=== PATIENT | male | born 1930 | race Caucasian/White ===

== ENCOUNTER → 2016-03-02 | Outpatient (CLI) | payer OTHER, MEDICARE | LOC: RAD 10:18 | PROVIDERS: ATTEND Urology | DX: N20.1 Calculus of ureter (principal) | CPT/HCPCS: 74000 ==

== ENCOUNTER → 2016-03-29 | Outpatient (CLI) | payer OTHER, MEDICARE | LOC: OD 10:16 | PROVIDERS: ATTEND Urology | DX: N20.1 Calculus of ureter (principal) | CPT/HCPCS: 74000 ==

== ENCOUNTER 2016-06-27 11:59 | Emergency (ER) | payer OTHER, MEDICARE ==
--- NOTE | 2016-06-27 13:13 | ER Document Report ---
ED Medical Screen (RME) - General Chief Complaint: Fall Stated Complaint: FALL BACK PAIN Mode of Arrival: Wheelchair Information source: Patient, Relative TRAVEL OUTSIDE OF THE [place] IN LAST 30 DAYS: No - HPI Onset: Other - 2 WKS AGO Onset/Duration: Sudden Quality of pain: Achy, Sharp Severity: Moderate Associated Symptoms: Weakness - LOWER EXTREMITIES Exacerbated by: Movement Relieved by: Remaining still Similar symptoms previously: Yes - PRIOR CHRONIC BACK PAIN Recently seen / treated by doctor: Yes - Gris[facility]Is[facility] IN [place] - Related Data Smoking: Non-smoker Frequency of alcohol use: None Drug Abuse: None Allergies/Adverse Reactions: pentazocine lactate [From [facility]] Allergy (Unknown, Verified 09/15/11 16:15) Past Medical History - General Information source: Patient, Relative - Past Medical History Cardiac Medical History: Reports: Hx Heart Attack, Hx Hypercholesterolemia, Hx Hypertension Pulmonary Medical History: Denies: Hx Tuberculosis Endocrine Medical History: Reports: None Renal/ Medical History: Reports: Hx Benign Prostatic Hyperplasia, Hx Kidney Stones. Denies: Hx Peritoneal Dialysis GI Medical History: Reports: Hx Gastroesophageal Reflux Disease Musculoskeltal Medical History: Reports Hx Arthritis Past Surgical History: Reports: Hx Cardiac Surgery, Hx Coronary Artery Bypass Graft, Hx Open Heart Surgery. Denies: Hx Pacemaker - Immunizations Hx Diphtheria, Pertussis, Tetanus Vaccination: Yes - 2009 Review of Systems - Review of Systems Constitutional: Weakness. denies: Chills, Fever EENT: No symptoms reported Cardiovascular: No symptoms reported Respiratory: No symptoms reported Gastrointestinal: No symptoms reported Musculoskeletal: See HPI, Back pain Neurological/Psychological: Tingling - HANDS & FEET Physical Exam - Vital signs Vitals: Temp Pulse Resp BP Pulse Ox 98.5 F 73 16 138/67 H 98 06/27/16 12:37 06/27/16 12:37 06/27/16 12:37 06/27/16 12:37 06/27/16 12:37 Interpretation: Normal - General General appearance: Appears well, Alert In distress: None - HEENT Head: Normocephalic - Back Back: Tender - OVER MIDLINE L2 TO L5 - Extremities General upper extremity: Normal inspection General lower extremity: Normal inspection Course - Vital Signs Vital signs: Temp Pulse Resp BP Pulse Ox 98.5 F 73 16 138/67 H 98 06/27/16 12:37 06/27/16 12:37 06/27/16 12:37 06/27/16 12:37 06/27/16 12:37
[2016-06-27 13:50] LABS: ABSOLUTE BASOPHILS # (AUTO) 0.1 10^3/uL (0.0-0.2); ABSOLUTE EOSINOPHILS # (AUTO) 0.2 10^3/uL (0.0-0.6); ABSOLUTE LYMPHOCYTES (AUTO) 2.4 10^3/uL (0.5-4.7); ABSOLUTE MONOCYTES (AUTO) 0.7 10^3/uL (0.1-1.4); ABSOLUTE NEUT (AUTO) 6.6 10^3/uL (1.7-8.2); BASOPHILS % (AUTO) 0.6 % (0-2); EOSINOPHILS % (AUTO) 2.3 % (0-6); HEMATOCRIT 41.9 % (37.9-51.0); HEMOGLOBIN 14.4 g/dL (13.5-17.0); HGB HCT DIFFERENCE 1.3; LYMPHOCYTES % (AUTO) 23.7 % (13-45); MEAN CORPUSCULAR HEMOGLOBIN 31.5 pg (27.0-33.4); MEAN CORPUSCULAR HGB CONC 34.4 g/dL (32.0-36.0); MEAN CORPUSCULAR VOLUME 92 fl (80-97); RED BLOOD COUNT 4.58 10^6/uL (4.35-5.55); RED CELL DISTRIBUTION WIDTH 13.3 % (11.5-14.0); SEGMENTED NEUTROPHILS % (AUTO) 66.4 % (42-78)
[2016-06-27 14:08] LABS: APPEARANCE,URINE CLEAR; BILIRUBIN,URINE NEGATIVE (NEGATIVE); GLUCOSE, URINE NEGATIVE (NEGATIVE); KETONES,URINE NEGATIVE (NEGATIVE); LEUKOCYTE ESTERASE,URINE NEGATIVE (NEGATIVE); NITRITE,URINE NEGATIVE (NEGATIVE); PROTEIN,URINE NEGATIVE (NEGATIVE); URINE SPECIFIC GRAVITY 1.003; UROBILINOGEN,URINE NEGATIVE mg/dL (<2.0)
[2016-06-27 14:09] LABS: ALANINE AMINOTRANSFERASE 35 U/L (21-72); ALBUMIN 4.5 g/dL (3.5-5.0); ALKALINE PHOSPHATASE 135 U/L (38-126); ANION GAP 13 (5-19); ASPARTATE AMINO TRANSFERASE 29 U/L (17-59); BILIRUBIN,DIRECT 0.3 mg/dL (0.0-0.4); BLOOD UREA NITROGEN 18 mg/dL (7-20); CARBON DIOXIDE 27 mmol/L (22-30); CHLORIDE 100 mmol/L (98-107); CREATININE RESULT 1.16 mg/dL (0.52-1.25); GLUCOSE 96 mg/dL (75-110); POTASSIUM 4.8 mmol/L (3.6-5.0); SODIUM 140.3 mmol/L (137-145); TOTAL PROTEIN 7.4 g/dL (6.3-8.2)
[2016-06-27] MEDS ORDERED: OXYCODONE-ACETAMINOPHEN 5-325 MG TABLET PO ONE (17:16)
[2016-06-27] MEDS ORDERED: ONDANSETRON 4 MG TAB.RAPDIS PO ONE (17:16)
[2016-06-27] MEDS ORDERED: ACETAMINOPHEN 325 MG TABLET PO ONE (17:46)
[2016-06-27 18:54] VITALS: BP 129/81
== END 2016-06-27 19:13 | disposition home or self-care (01) ==
LOC: ER 11:59
DX: S32.010A Wedge compression fracture of first lumbar vertebra, initial encounter for closed fracture (principal); W19.XXXA Unspecified fall, initial encounter; R53.1 Weakness; M54.9 Dorsalgia, unspecified; G89.29 Other chronic pain; Z79.891 Long term (current) use of opiate analgesic; I25.2 Old myocardial infarction; I10 Essential (primary) hypertension; Z88.5 Allergy status to narcotic agent; Z95.1 Presence of aortocoronary bypass graft
CPT/HCPCS: 36415; 72131; 80053; 81001; 85025; 99284

== ENCOUNTER 2017-05-11 10:42 | Emergency (ER) | payer OTHER, MEDICARE ==
[2017-05-11 11:57] LABS: ABSOLUTE BASOPHILS # (AUTO) 0.1 10^3/uL (0.0-0.2); ABSOLUTE EOSINOPHILS # (AUTO) 0.1 10^3/uL (0.0-0.6); ABSOLUTE LYMPHOCYTES (AUTO) 1.3 10^3/uL (0.5-4.7); ABSOLUTE MONOCYTES (AUTO) 0.9 10^3/uL (0.1-1.4); BASOPHILS % (AUTO) 0.6 % (0-2); EOSINOPHILS % (AUTO) 1.2 % (0-6); HEMATOCRIT 41.4 % (37.9-51.0); HEMOGLOBIN 13.7 g/dL (13.5-17.0); LYMPHOCYTES % (AUTO) 10.3 % (13-45); MEAN CORPUSCULAR HEMOGLOBIN 31.7 pg (27.0-33.4); MEAN CORPUSCULAR HGB CONC 33.2 g/dL (32.0-36.0); MEAN CORPUSCULAR VOLUME 96 fl (80-97); MONOCYTES % (AUTO) 7.3 % (3-13); PLATELET COUNT 205 10^3/uL (150-450); RED BLOOD COUNT 4.33 10^6/uL (4.35-5.55); RED CELL DISTRIBUTION WIDTH 13.8 % (11.5-14.0); SEGMENTED NEUTROPHILS % (AUTO) 80.6 % (42-78); TOTAL CELLS COUNTED % (AUTO) 100 %; WHITE BLOOD COUNT 12.4 10^3/uL (4.0-10.5)
--- NOTE | 2017-05-11 12:06 | RADIOLOGY REPORT (SQ) ---
EXAM DESCRIPTION: CHEST PA/LAT COMPLETED DATE/TIME: 05/11/2017 11:55 am REASON FOR STUDY: fall yesterday and syncope today COMPARISON: 09/14/2016 EXAM PARAMETERS: NUMBER OF VIEWS: two views TECHNIQUE: Digital Frontal and Lateral radiographic views of the chest acquired. RADIATION DOSE: NA LIMITATIONS: none FINDINGS: LUNGS AND PLEURA: No opacities, masses or pneumothorax. No pleural effusion. MEDIASTINUM AND HILAR STRUCTURES: No masses or contour abnormalities. HEART AND VASCULAR STRUCTURES: Heart normal size. No evidence for failure. BONES: No acute findings. HARDWARE: Sternotomy wires, graft markers. OTHER: No other significant finding. IMPRESSION: NO SIGNIFICANT RADIOGRAPHIC FINDING IN THE CHEST. TECHNICAL DOCUMENTATION: JOB ID: [id number] [employer]- All Rights Reserved Reading location - IP/workstation name: [email or web address]
--- NOTE | 2017-05-11 12:35 | RADIOLOGY REPORT (SQ) ---
EXAM DESCRIPTION: CT HEAD WITHOUT COMPLETED DATE/TIME: 05/11/2017 12:04 pm REASON FOR STUDY: fall yesterday and syncope today COMPARISON: None. TECHNIQUE: Axial images acquired through the brain without intravenous contrast. Images reviewed wi th bone, brain and subdural windows. Images stored on PACS. All CT scanners at this facility use dose modulation, iterative reconstruction, and/or weight based d osing when appropriate to reduce radiation dose to as low as reasonably achievable (ALARA). [facility]: Dose Right [facility]: CareDose [facility]: Dose Right [facility]: Teradose 4D [facility]: Smart [employer] RADIATION DOSE: CT Rad equipment meets quality standard of care and radiation dose reduction techniq ues were employed. CTDIvol: 28.0 mGy. DLP: 504 mGy-cm. mGy. LIMITATIONS: None. FINDINGS: VENTRICLES: Prominent ventricles secondary to involutional atrophy. CEREBRUM: Cortical atrophy. No masses. No hemorrhage. No midline shift. No evidence for acute inf arction. Normal boles/white matter differentiation. No areas of low density in the white matter. CEREBELLUM: No masses. No hemorrhage. No alteration of density. No evidence for acute infarction. EXTRAAXIAL SPACES: No fluid collections. No masses. ORBITS AND GLOBE: No intra- or extraconal masses. Normal contour of globe without masses. CALVARIUM: No fracture. PARANASAL SINUSES: No fluid or mucosal thickening. SOFT TISSUES: No mass or hematoma. OTHER: No other significant finding. IMPRESSION: Involutional changes of aging with no acute intracranial imaging findings. EVIDENCE OF ACUTE STROKE: NO. COMMENT: Quality ID # [id number]: Final reports with documentation of one or more dose reduction techniques (e.g., Automated exposure control, adjustment of the mA and/or kV according to patient size, use of iterative reconstruction technique) TECHNICAL DOCUMENTATION: JOB ID: [id number] [employer]- All Rights Reserved Reading location - IP/workstation name: [email or web address]
[2017-05-11 12:41] LABS: APPEARANCE,URINE SLIGHTLY-CLOUDY; BILIRUBIN,URINE NEGATIVE (NEGATIVE); COLOR,URINE YELLOW; GLUCOSE, URINE NEGATIVE (NEGATIVE); KETONES,URINE NEGATIVE (NEGATIVE); LEUKOCYTE ESTERASE,URINE NEGATIVE (NEGATIVE); NITRITE,URINE NEGATIVE (NEGATIVE); PROTEIN,URINE NEGATIVE (NEGATIVE); URINE SPECIFIC GRAVITY 1.009; UROBILINOGEN,URINE NEGATIVE mg/dL (<2.0)
--- NOTE | 2017-05-11 12:42 | RADIOLOGY REPORT (SQ) ---
EXAM DESCRIPTION: CT CERVICAL SPINE WITHOUT COMPLETED DATE/TIME: 05/11/2017 12:04 pm REASON FOR STUDY: fall yesterday and syncope today COMPARISON: None. TECHNIQUE: Axial images acquired through the cervical spine without intravenous contrast. Images re viewed with lung, soft tissue and bone windows. Reconstructed coronal and sagittal MPR images review ed. Images stored on PACS. All CT scanners at this facility use dose modulation, iterative reconstruction, and/or weight based d osing when appropriate to reduce radiation dose to as low as reasonably achievable (ALARA). [facility]: Dose Right [facility]: CareDose [facility]: Dose Right [facility]: Teradose 4D [facility]: Smart [employer] RADIATION DOSE: CT Rad equipment meets quality standard of care and radiation dose reduction techniq ues were employed. CTDIvol: 23.3 mGy. DLP: 362 mGy-cm. mGy. LIMITATIONS: None. FINDINGS: ALIGNMENT: Slightly increased cervical lordosis. Mild grade 1 anterolisthesis of C4 on 5 and C5 on 6. MINERALIZATION: Normal. VERTEBRAL BODIES: No fractures or dislocation. DISCS: Disc spaces are narrowed from C3-C5. Anterior and posterior osteophytes are present. FACETS, LATERAL MASSES, POSTERIOR ELEMENTS: Extensive hypertrophic facet changes are present mid to a lower cervical spine, slightly greater on the left than the right. There is no evidence of slipped or perched articular facet. HARDWARE: None in the spine. VISUALIZED RIBS: No fractures. LUNG APICES AND SOFT TISSUES: No significant or acute findings. OTHER: No other significant finding. IMPRESSION: Mild anterolistheses as described. Degenerative disc disease, spondylosis, and facet ar thropathy with no acute abnormality. TECHNICAL DOCUMENTATION: JOB ID: [id number] Quality ID # [id number]: Final reports with documentation of one or more dose reduction techniques (e.g., Au tomated exposure control, adjustment of the mA and/or kV according to patient size, use of iterative reconstruction technique) 2010 [employer]- All Rights Reserved Reading location - IP/workstation name: [email or web address]
--- NOTE | 2017-05-11 13:55 | EKG REPORT ---
SEVERITY:- ABNORMAL ECG - SINUS RHYTHM RIGHT BUNDLE BRANCH BLOCK : Confirmed by: Dave Rodriguez MD 11-May-2017 13:54:06
[2017-05-11 14:18] LABS: ALANINE AMINOTRANSFERASE 25 U/L (21-72); ALBUMIN 3.7 g/dL (3.5-5.0); ALKALINE PHOSPHATASE 92 U/L (38-126); ANION GAP 9 (5-19); ASPARTATE AMINO TRANSFERASE 20 U/L (17-59); BILIRUBIN,DIRECT 0.6 mg/dL (0.0-0.4); BILIRUBIN,TOTAL 1.1 mg/dL (0.2-1.3); BLOOD UREA NITROGEN 22 mg/dL (7-20); CARBON DIOXIDE 29 mmol/L (22-30); CHLORIDE 102 mmol/L (98-107); CREATINE KINASE 73 U/L (55-170); GLUCOSE 93 mg/dL (75-110); POTASSIUM 4.3 mmol/L (3.6-5.0); SODIUM 140.3 mmol/L (137-145); TOTAL PROTEIN 6.3 g/dL (6.3-8.2)
[2017-05-11 14:30] LABS: CREATINE KINASE MB 1.56 ng/mL (<4.55); TROPONIN I 0.014 ng/mL
--- NOTE | 2017-05-11 14:49 | ER Document Report ---
ED Syncope and Near Syncope - General Chief Complaint: Syncope Stated Complaint: POSSIBLE SYNCOPE Time Seen by Provider: 05/11/17 11:01 Notes: Patient is an 86-year-old male who presents emergency department after witnessed syncopal event at home. Patient's and daughter state that he was in his shower chair with his aide when he passed out. She states this was less than 10 minutes and he was then easily aroused. Denies any direct head trauma, denies any focal neurological complaint, weakness, dizziness, vision changes, loss of vision, chest pain, SOB, BOYKIN, cough, fever, abdominal pain, n/v /d, urianary pain/discomfort Past medical history significant for hypertension, recurrent bacterial infection , low back and neck pain under chronic pain management, distal neuropathy, glaucoma, previous PR with previous CABG TRAVEL OUTSIDE OF THE [place] IN LAST 30 DAYS: No - Related Data Allergies/Adverse Reactions: pentazocine lactate [From [facility]] Allergy (Unknown, Verified 09/15/11 16:15) Past Medical History - Social History Smoking Status: Former Smoker Chew tobacco use (# tins/day): No Frequency of alcohol use: None Drug Abuse: None Family History: None Patient has suicidal ideation: No Patient has homicidal ideation: No - Past Medical History Cardiac Medical History: Reports: Hx Heart Attack - x2, Hx Hypercholesterolemia , Hx Hypertension Pulmonary Medical History: Denies: Hx Tuberculosis Renal/ Medical History: Reports: Hx Benign Prostatic Hyperplasia, Hx Kidney Stones. Denies: Hx Peritoneal Dialysis GI Medical History: Reports: Hx Gastroesophageal Reflux Disease Musculoskeltal Medical History: Reports Hx Arthritis Past Surgical History: Reports: Hx Cardiac Catheterization - stent , Hx Cardiac Surgery, Hx Coronary Artery Bypass Graft, Hx Open Heart Surgery - CABG x2 2007 [place]. Denies: Hx Pacemaker - Immunizations Hx Diphtheria, Pertussis, Tetanus Vaccination: Yes - 2009 Hx Pneumococcal Vaccination: 03/06/06 Review of Systems - Review of Systems Notes: REVIEW OF SYSTEMS: CONSTITUTIONAL : Denies fever, chills, or sweats. Denies recent illness. EENT: Denies eye, ear, throat, or mouth pain or symptoms. Denies nasal or sinus congestion or discharge. Denies throat, tongue, or mouth swelling or difficulty swallowing. CARDIOVASCULAR: Denies chest pain. Denies palpitations or racing or irregular heart beat. Denies ankle edema. RESPIRATORY: Denies cough, cold, or chest congestion. Denies shortness of breath, difficulty breathing, or wheezing. GASTROINTESTINAL: Denies abdominal pain or distention. Denies nausea, vomiting , or diarrhea. Denies blood in vomitus, stools, or per rectum. Denies black, tarry stools. Denies constipation. GENITOURINARY: Denies difficulty urinating, painful urination, burning, frequency, blood in urine, or discharge. MUSCULOSKELETAL: Denies any muscle spasms, difficulty walking, extremity pain SKIN: Denies rash, lesions or sores. HEMATOLOGIC : Denies easy bruising or bleeding. LYMPHATIC: Denies swollen, enlarged glands. NEUROLOGICAL: Denies confusion or altered mental status. See HPI. Denies dizziness or lightheadedness. Denies headache. Denies weakness or paralysis or loss of use of either side. Denies problems with gait or speech. Denies sensory loss, numbness, or tingling. Denies seizures. PSYCHIATRIC: Denies anxiety or stress. Denies depression, suicidal ideation, or homicidal ideation. ALL OTHER SYSTEMS REVIEWED AND NEGATIVE. Dictation was performed using stylemarks voice recognition software Physical Exam - Vital signs Vitals: Temp Pulse BP Pulse Ox 97.5 F 58 L 116/52 L 97 05/11/17 10:46 05/11/17 10:46 05/11/17 10:46 05/11/17 10:46 - Notes Notes: PHYSICAL EXAM GENERAL: Alert, interacts well. HEAD: Normocephalic, atraumatic. EYES: Pupils equal, round, and reactive to light. Extraocular movements intact. ENT: Oral mucosa moist, tongue midline. NECK: Full range of motion. Supple. Trachea midline. LUNGS: Clear to auscultation bilaterally, no wheezes, rales, or rhonchi. No respiratory distress. HEART: Regular rate and rhythm. No murmurs, gallops, or rubs. ABDOMEN: Soft, nondistended, nontender. No guarding, rebound, or rigidity.. Bowel sounds present in all 4 quadrants. EXTREMITIES: Moves all 4 extremities spontaneously. No edema, radial and dorsalis pedis pulses 2/4 bilaterally. No cyanosis. NEUROLOGICAL: Alert and oriented x4. Normal speech. Face symmetric. Tongue protrudes midline. Extraocular motions intact. Pupils are 2 mm and equally reactive. Normal speech. 5 out of 5 strength in both the distal and proximal upper and lower extremities bilaterally. Sensation is grossly intact throughout. Finger to nose testing normal. Pronator drift normal. PSYCH: Normal affect, normal mood. SKIN: Warm, dry, normal turgor. No rashes or lesions noted. Course - Re-evaluation Re-evalutation: 05/11/17 14:48 Patient is an 86-year-old male who is hemodynamically stable, no acute distress and afebrile. Presentation of syncope of unclear etiology. Patient normotensive , alert, without focal neurologic deficits at time of arrival. Denies syncope was during exertion. No preceding symptoms of palpitations, chest pain, or shortness of breath. Patient asymptomatic at time of arrival. EKG is without evidence of HCOM, right heart strain, ST changes to suggest ischemia, prolong QTc, delta wave, epsilon wave, or Brugada syndrome. Patient denies any family history of sudden cardiac , personal history of of structural heart disease. Patient denies any symptoms to suggest an acute PE, PR, TAD, SAH, seizure, or acute GI bleed as the etiology of their syncope today. On exam, no murmurs to suggest critical aortic stenosis as possible etiology. Repeat neuro exams stable without any concerns for underlying TIA, CVA. CT of the head without any associated underlying concerns for stroke. Based on overall clinical history, exam findings, vitals, and patients appearance, I feel it is safe for patient to be discharged home at this time with close outpatient follow -up and strict return precautions. Patient is in agreement with this plan, has verbalized indications for return to ED, and questions have been answered. - Vital Signs Vital signs: Temp Pulse Resp BP Pulse Ox 97.4 F 58 L 19 121/64 97 05/11/17 11:35 05/11/17 10:46 05/11/17 15:01 05/11/17 15:01 05/11/17 15:01 - Laboratory Result Diagrams: 05/11/17 11:37 05/11/17 13:29 Laboratory results interpreted by me: 05/11/17 05/11/17 05/11/17 11:37 12:11 13:29 WBC 12.4 H RBC 4.33 L Seg Neutrophils % 80.6 H Lymphocytes % 10.3 L Absolute Neutrophils 10.0 H BUN 22 H Creatinine 1.26 H Est GFR (Non-Af Amer) 54 L Direct Bilirubin 0.6 H Urine Blood MODERATE H - Diagnostic Test Radiology reviewed: Image reviewed, Reports reviewed - EKG Interpretation by Me EKG shows normal: Sinus rhythm - with artifact Rate: Normal Rhythm: NSR When compared to previous EKG there are: No significant change Discharge - Discharge Clinical Impression: Syncope Qualifiers: Syncope type: unspecified Qualified Code(s): R55 - Syncope and collapse Condition: Good Disposition: HOME, SELF-CARE Additional Instructions: You were seen today after an episode of passing out. Your EKG here is normal. At this time, we do not feel that your episode of passing out was from any life- threatening cause. Please drink plenty of fluids over the next several days. Return to emergency department if you have any further episodes of syncope, headache, weakness, numbness, chest pain, or shortness of breath. Please follow up closely with your primary care physician. Referrals: [facility] [Provider Group] - Follow up as needed GEO MCKEON MD [Primary Care Provider] - Follow up in 3-5 days
[2017-05-11 15:18] VITALS: BP 121/64
== END 2017-05-11 15:19 | disposition home or self-care (01) ==
LOC: ER 10:42
DX: R55 Syncope and collapse (principal); I10 Essential (primary) hypertension; I25.2 Old myocardial infarction; G89.29 Other chronic pain; Z95.1 Presence of aortocoronary bypass graft; Z88.5 Allergy status to narcotic agent; Z95.5 Presence of coronary angioplasty implant and graft
CPT/HCPCS: 36415; 70450; 71046; 72125; 80053; 81001; 82550; 82553; 84484; 85025; 87086; 93005; 93010; 99285

== ENCOUNTER 2018-02-22 08:42 | Emergency (ER) | payer OTHER, MEDICARE ==
[2018-02-22] MEDS ORDERED: ACETAMINOPHEN 325 MG TABLET PO ONE (09:44)
--- NOTE | 2018-02-22 10:21 | EKG REPORT ---
SEVERITY:- ABNORMAL ECG - SINUS RHYTHM RIGHT BUNDLE BRANCH BLOCK : Confirmed by: Chandler Eastman 22-Feb-2018 10:20:40
--- NOTE | 2018-02-22 10:40 | RADIOLOGY REPORT (SQ) ---
EXAM DESCRIPTION: CT HEAD WITHOUT COMPLETED DATE/TIME: 02/22/2018 10:26 am REASON FOR STUDY: VALENTINE, fall COMPARISON: 05/11/2017 TECHNIQUE: Axial images acquired through the brain without intravenous contrast. Images reviewed wi th bone, brain and subdural windows. Additional sagittal and coronal reconstructions were generated. Images stored on PACS. All CT scanners at this facility use dose modulation, iterative reconstruction, and/or weight based d osing when appropriate to reduce radiation dose to as low as reasonably achievable (ALARA). [facility]: Dose Right [facility]: CareDose [facility]: Dose Right [facility]: Teradose 4D [facility]: [email or web address] RADIATION DOSE: CT Rad equipment meets quality standard of care and radiation dose reduction techniq ues were employed. CTDIvol: 53.2 mGy. DLP: 964 mGy-cm.mGy. LIMITATIONS: None. FINDINGS: VENTRICLES: Prominent. CEREBRUM: No masses. No hemorrhage. No midline shift. Areas of low density in the white matter mos t likely due to chronic micro-vascular ischemic change. No evidence for acute infarction. CEREBELLUM: No masses. No hemorrhage. No alteration of density. No evidence for acute infarction. EXTRAAXIAL SPACES: Age-related involutional change. No fluid collections. No masses. ORBITS AND GLOBE: No intra- or extraconal masses. Normal contour of globe without masses. CALVARIUM: No fracture. PARANASAL SINUSES: No fluid or mucosal thickening. SOFT TISSUES: No mass or hematoma. OTHER: No other significant finding. IMPRESSION: CHRONIC CHANGES OF ATROPHY AND MICROVASCULAR ISCHEMIA. NO ACUTE PROCESS. EVIDENCE OF ACUTE STROKE: NO. TECHNICAL DOCUMENTATION: JOB ID: [id number] Quality ID # [id number]: Final reports with documentation of one or more dose reduction techniques (e.g., Au tomated exposure control, adjustment of the mA and/or kV according to patient size, use of iterative reconstruction technique) 2010 [employer]- All Rights Reserved Reading location - IP/workstation name: [email or web address]
--- NOTE | 2018-02-22 10:41 | RADIOLOGY REPORT (SQ) ---
EXAM DESCRIPTION: CT CERVICAL SPINE WITHOUT COMPLETED DATE/TIME: 02/22/2018 10:26 am REASON FOR STUDY: falls, weak upper extremities COMPARISON: 05/11/2017. TECHNIQUE: Axial images acquired through the cervical spine without intravenous contrast. Images re viewed with lung, soft tissue and bone windows. Reconstructed coronal and sagittal MPR images review ed. Images stored on PACS. All CT scanners at this facility use dose modulation, iterative reconstruction, and/or weight based d osing when appropriate to reduce radiation dose to as low as reasonably achievable (ALARA). [facility]: Dose Right [facility]: CareDose [facility]: Dose Right [facility]: Teradose 4D [facility]: [employer] RADIATION DOSE: CT Rad equipment meets quality standard of care and radiation dose reduction techniq ues were employed. CTDIvol: 23.7 mGy. DLP: 545 mGy-cm. mGy. LIMITATIONS: None. FINDINGS: ALIGNMENT: Stable. MINERALIZATION: Normal. VERTEBRAL BODIES: No fractures or dislocation. DISCS: Multilevel disc space narrowing with osteophytes. FACETS, LATERAL MASSES, POSTERIOR ELEMENTS: Facet arthropathy. No fractures. No dislocation. No ac [place] findings. HARDWARE: None in the spine. VISUALIZED RIBS: No fractures. LUNG APICES AND SOFT TISSUES: No significant or acute findings. OTHER: No other significant finding. IMPRESSION: CHRONIC DEGENERATIVE CHANGES. NO ACUTE FINDINGS. TECHNICAL DOCUMENTATION: JOB ID: [id number] Quality ID # [id number]: Final reports with documentation of one or more dose reduction techniques (e.g., Au tomated exposure control, adjustment of the mA and/or kV according to patient size, use of iterative reconstruction technique) 2010 [employer]- All Rights Reserved Reading location - IP/workstation name: [email or web address]
--- NOTE | 2018-02-22 10:42 | ER Document Report ---
ED Fall - General Chief Complaint: Fall Stated Complaint: FALL WITHOUT INJURY Time Seen by Provider: 02/22/18 09:11 Mode of Arrival: Medic Information source: Patient, Relative Notes: Patient presents with his at bedside after patient slipped out of a chair after attempting to stand. states patient typically walks with use of a walker but has not been able to walk for the past week. Patient complains of headache pain for the past month. states that patient's had several falls over the past week and they have her had to rely on family member and neighbors to get him up and into a wheelchair. Patient has not been able to get out of a wheelchair independently. Patient without any nausea vomiting diarrhea, chest pain, abdominal pain or cough. Patient does complain of back pain but does report he has a history of chronic back pain. Patient denies any injury from e fall today. Patient states that for the past week he also has not been able to fully extend his fingers and that his hands have been in a flexed position bilaterally. Patient is able to move his upper extremities otherwise. TRAVEL OUTSIDE OF THE [place] IN LAST 30 DAYS: No - HPI Occurred: Last week Where: Home Context: Fell from sitting Associated symptoms: Difficulty walking Location of injury/pain: Back, Head Quality of pain: Achy Pain Level: 3 - Related data Allergies/Adverse Reactions: pentazocine lactate [From [employer]] Allergy (Unknown, Verified 09/15/11 16:15) Past Medical History - General Information source: Patient, Relative - Social History Smoking Status: Former Smoker Chew tobacco use (# tins/day): No Frequency of alcohol use: None Drug Abuse: None Lives with: Spouse/Significant other Family History: None Patient has suicidal ideation: No Patient has homicidal ideation: No - Past Medical History Cardiac Medical History: Reports: Hx Heart Attack - x2, Hx Hypercholesterolemia, Hx Hypertension Pulmonary Medical History: Denies: Hx Tuberculosis Renal/ Medical History: Reports: Hx Benign Prostatic Hyperplasia, Hx Kidney Stones. Denies: Hx Peritoneal Dialysis GI Medical History: Reports: Hx Gastroesophageal Reflux Disease Musculoskeletal Medical History: Reports Hx Arthritis Past Surgical History: Reports: Hx Cardiac Catheterization - stent , Hx Cardiac Surgery, Hx Coronary Artery Bypass Graft, Hx Open Heart Surgery - CABG x2 2007 vidant. Denies: Hx Pacemaker - Immunizations Hx Diphtheria, Pertussis, Tetanus Vaccination: Yes - 2009 Hx Pneumococcal Vaccination: 03/06/06 Review of Systems - Review of Systems Constitutional: No symptoms reported. denies: Fever, Recent illness EENT: No symptoms reported Cardiovascular: No symptoms reported. denies: Chest pain, Syncope, Dizziness, Lightheaded Respiratory: No symptoms reported. denies: Cough, Short of breath Gastrointestinal: No symptoms reported. denies: Abdominal pain, Vomiting Genitourinary: No symptoms reported Male Genitourinary: No symptoms reported Musculoskeletal: Back pain Skin: No symptoms reported Hematologic/Lymphatic: No symptoms reported Neurological/Psychological: Weakness - To bilateral lower extremities, Numbness - To lower extremity, Other - inability to extend fingers Physical Exam - Vital signs Vitals: Temp Resp Pulse Ox 98.6 F 15 94 02/22/18 09:00 02/22/18 09:00 02/22/18 09:00 - General General appearance: Appears well, Alert In distress: None - HEENT Head: Normocephalic, Atraumatic. No: Abrasions, Conte's sign, Racoon's eyes, Tenderness Eyes: Other - left eye conjunctival erythema Extraocular movements intact: Yes Nasal: Normal Mucous membranes: Normal Pharynx: Normal Neck: Normal, Supple. No: Lymphadenopathy Notes: No cervical midline tenderness step-off or deformity - Respiratory Respiratory status: No respiratory distress Chest status: Nontender Breath sounds: Normal. No: Rales, Rhonchi, Stridor, Wheezing Chest palpation: Normal - Cardiovascular Rhythm: Regular Heart sounds: S1 appreciated, S2 appreciated - Abdominal Inspection: Normal Distension: Distended Bowel sounds: Normal Tenderness: Nontender Organomegaly: No organomegaly - Back Back: Tender - Generalized lumbar paraspinal tenderness. No: CVA tenderness - Extremities General upper extremity: Other - Fingers of bilateral hands flexed, patient unable to fully extend fingers General lower extremity: Nontender, Edema - 2-3+ edema to bilateral lower extremities, left worse than right, Normal color, Normal temperature. No: Normal strength - Weakness to bilateral lower extremity, patient unable to lift left leg against gravity, patient able to lift right leg off of stretcher, Normal weight bearing Shoulder: Normal, Nontender Arm: Normal, Nontender Elbow: Normal, Nontender Forearm: Normal, Nontender Wrist: Normal, Nontender Hand: Other - Fingers of bilateral hands flexed Hip: Normal, Nontender Thigh: Normal, Nontender Knee: Normal, Nontender Ankle: Edema Foot: Edema - Neurological Neuro grossly intact: Yes [place] Coma Scale Eye Opening: Spontaneous [place] Coma Scale Verbal: Oriented [place] Coma Scale Motor: Obeys Commands [place] Coma Scale Total: 15 Speech: No: Normal, Dysarthria Motor strength normal: No: LUE, RUE, LLE, RLE - Psychological Associated symptoms: Normal affect, Normal mood - Skin Skin Temperature: Warm Skin Moisture: Dry Skin Color: Normal Course - Re-evaluation Re-evalutation: 02/22/18 13:[address] Ramos regarding pt presentation and diagnostic evaluation, advises admission for likely stroke with new onset LLE 02/22/18 13:[address] Lewis who states that he will come down and speak with ramya ent. 02/22/18 15:05 Dr. Lewis came down and spoke with patient and family. Patient and family are now not wanting patient to be admitted stating that they will attempt to arrange getting patient to rehab on an outpatient basis. Dr. Lewis states that he offered admission and family is declining at this point. States that if patient or family change their mind that he will be happy to admit. Tone with discharge planning was consulted and has been attempting to speak with his home health care as far as helping to arrange for any additional assistance with getting him transition to rehab. 02/22/18 15:53 Tone Aviles with discharge planning states that she spoke with [facility] who will be at patient's home tomorrow. Family does request assistance getting patient home and then they can manage until being evaluated tomorrow to help get him evaluated for transition to rehab. 02/22/18 18:51 - Vital Signs Vital signs: Temp Pulse Resp BP Pulse Ox 97.1 F 56 L 16 140/62 H 95 02/22/18 17:06 02/22/18 17:06 02/22/18 17:06 02/22/18 17:06 02/22/18 17:06 - Laboratory Result Diagrams: 02/22/18 11:05 02/22/18 11:05 Laboratory results interpreted by me: 02/22/18 02/22/18 11:05 11:05 RBC 4.13 L Carbon Dioxide 33 H BUN 23 H Creatinine 1.29 H Est GFR (Non-Af Amer) 53 L Total Protein 5.9 L Labs- Entire Visit 02/22/18 02/22/18 02/22/18 10:52 11:05 11:05 WBC 7.8 RBC 4.13 L Hgb 13.5 Hct 39.4 MCV 95 MCH 32.7 MCHC 34.3 RDW 13.7 Plt Count 174 Seg Neutrophils % 73.4 Lymphocytes % 14.2 Monocytes % 8.7 Eosinophils % 3.4 Basophils % 0.3 Absolute Neutrophils 5.7 Absolute Lymphocytes 1.1 Absolute Monocytes 0.7 Absolute Eosinophils 0.3 Absolute Basophils 0.0 PT 14.0 INR 1.03 APTT 34.1 Sodium Potassium Chloride Carbon Dioxide Anion Gap BUN Creatinine Est GFR ( Amer) Est GFR (Non-Af Amer) Glucose Calcium Total Bilirubin Direct Bilirubin Neonat Total Bilirubin Neonat Direct Bilirubin Neonat Indirect Bili AST ALT Alkaline Phosphatase Creatine Kinase CK-MB (CK-2) Troponin I Total Protein Albumin Urine Color YELLOW Urine Appearance CLEAR Urine pH 7.0 Ur Specific [place] 1.010 Urine Protein NEGATIVE Urine Glucose (UA) NEGATIVE Urine Ketones NEGATIVE Urine Blood NEGATIVE Urine Nitrite NEGATIVE Urine Bilirubin NEGATIVE Urine Urobilinogen NEGATIVE Ur Leukocyte Esterase NEGATIVE Urine WBC (Auto) 1 U Hyaline Cast (Auto) 4 Squamous Epi Cells Auto <1 Amorphous Sediment Auto TRACE Urine Mucus (Auto) RARE Urine Ascorbic Acid NEGATIVE 02/22/18 02/22/18 11:05 11:05 WBC RBC Hgb Hct MCV MCH MCHC RDW Plt Count Seg Neutrophils % Lymphocytes % Monocytes % Eosinophils % Basophils % Absolute Neutrophils Absolute Lymphocytes Absolute Monocytes Absolute Eosinophils Absolute Basophils PT INR APTT Sodium 141.5 Potassium 4.2 Chloride 100 Carbon Dioxide 33 H Anion Gap 9 BUN 23 H Creatinine 1.29 H Est GFR ( Amer) > 60 Est GFR (Non-Af Amer) 53 L Glucose 95 Calcium 9.9 Total Bilirubin 0.9 Direct Bilirubin 0.4 Neonat Total Bilirubin Not Reportable Neonat Direct Bilirubin Not Reportable Neonat Indirect Bili Not Reportable AST 24 ALT 23 Alkaline Phosphatase 91 Creatine Kinase 80 CK-MB (CK-2) 1.95 Troponin I 0.023 Total Protein 5.9 L Albumin 3.5 Urine Color Urine Appearance Urine pH Ur Specific [place] Urine Protein Urine Glucose (UA) Urine Ketones Urine Blood Urine Nitrite Urine Bilirubin Urine Urobilinogen Ur Leukocyte Esterase Urine WBC (Auto) U Hyaline Cast (Auto) Squamous Epi Cells Auto Amorphous Sediment Auto Urine Mucus (Auto) Urine Ascorbic Acid 02/22/18 15:23 Labs- Entire Visit 02/22/18 02/22/18 02/22/18 10:52 11:05 11:05 WBC 7.8 RBC 4.13 L Hgb 13.5 Hct 39.4 MCV 95 MCH 32.7 MCHC 34.3 RDW 13.7 Plt Count 174 Seg Neutrophils % 73.4 Lymphocytes % 14.2 Monocytes % 8.7 Eosinophils % 3.4 Basophils % 0.3 Absolute Neutrophils 5.7 Absolute Lymphocytes 1.1 Absolute Monocytes 0.7 Absolute Eosinophils 0.3 Absolute Basophils 0.0 PT 14.0 INR 1.03 APTT 34.1 Sodium Potassium Chloride Carbon Dioxide Anion Gap BUN Creatinine Est GFR ( Amer) Est GFR (Non-Af Amer) Glucose Calcium Total Bilirubin Direct Bilirubin Neonat Total Bilirubin Neonat Direct Bilirubin Neonat Indirect Bili AST ALT Alkaline Phosphatase Creatine Kinase CK-MB (CK-2) Troponin I Total Protein Albumin Urine Color YELLOW Urine Appearance CLEAR Urine pH 7.0 Ur Specific [place] 1.010 Urine Protein NEGATIVE Urine Glucose (UA) NEGATIVE Urine Ketones NEGATIVE Urine Blood NEGATIVE Urine Nitrite NEGATIVE Urine Bilirubin NEGATIVE Urine Urobilinogen NEGATIVE Ur Leukocyte Esterase NEGATIVE Urine WBC (Auto) 1 U Hyaline Cast (Auto) 4 Squamous Epi Cells Auto <1 Amorphous Sediment Auto TRACE Urine Mucus (Auto) RARE Urine Ascorbic Acid NEGATIVE 02/22/18 02/22/18 11:05 11:05 WBC RBC Hgb Hct MCV MCH MCHC RDW Plt Count Seg Neutrophils % Lymphocytes % Monocytes % Eosinophils % Basophils % Absolute Neutrophils Absolute Lymphocytes Absolute Monocytes Absolute Eosinophils Absolute Basophils PT INR APTT Sodium 141.5 Potassium 4.2 Chloride 100 Carbon Dioxide 33 H Anion Gap 9 BUN 23 H Creatinine 1.29 H Est GFR ( Amer) > 60 Est GFR (Non-Af Amer) 53 L Glucose 95 Calcium 9.9 Total Bilirubin 0.9 Direct Bilirubin 0.4 Neonat Total Bilirubin Not Reportable Neonat Direct Bilirubin Not Reportable Neonat Indirect Bili Not Reportable AST 24 ALT 23 Alkaline Phosphatase 91 Creatine Kinase 80 CK-MB (CK-2) 1.95 Troponin I 0.023 Total Protein 5.9 L Albumin 3.5 Urine Color Urine Appearance Urine pH Ur Specific [place] Urine Protein Urine Glucose (UA) Urine Ketones Urine Blood Urine Nitrite Urine Bilirubin Urine Urobilinogen Ur Leukocyte Esterase Urine WBC (Auto) U Hyaline Cast (Auto) Squamous Epi Cells Auto Amorphous Sediment Auto Urine Mucus (Auto) Urine Ascorbic Acid - Diagnostic Test Radiology reviewed: Reports reviewed Discharge - Discharge Clinical Impression: Left leg weakness, Unable to ambulate Fall Qualifiers: Encounter type: initial encounter Qualified Code(s): W19.XXXA - Unspecified fall, initial encounter Condition: Stable Disposition: HOME, SELF-CARE Instructions: Weakness ([facility]) Additional Instructions: Return immediately for any new or worsening symptoms Followup with your primary care provider, call tomorrow to make a followup appointment [facility] will be by to your home for evaluation tomorrow. Give your primary care provider a call for follow-up. Referrals: [facility] [Provider Group] - Follow up tomorrow
--- NOTE | 2018-02-22 10:51 | RADIOLOGY REPORT (SQ) ---
EXAM DESCRIPTION: CHEST SINGLE VIEW COMPLETED DATE/TIME: 02/22/2018 10:43 am REASON FOR STUDY: VALENTINE, fall COMPARISON: 09/15/2011 EXAM PARAMETERS: NUMBER OF VIEWS: One view. TECHNIQUE: Single frontal radiographic view of the chest acquired. RADIATION DOSE: NA LIMITATIONS: None. FINDINGS: LUNGS AND PLEURA: No opacities, masses or pneumothorax. No pleural effusion. MEDIASTINUM AND HILAR STRUCTURES: Stable. HEART AND VASCULAR STRUCTURES: Stable cardiomegaly. Normal vasculature. BONES: No acute findings. HARDWARE: CABG. OTHER: No other significant finding. IMPRESSION: NO ACUTE RADIOGRAPHIC FINDING IN THE CHEST. TECHNICAL DOCUMENTATION: JOB ID: [id number] [employer]- All Rights Reserved Reading location - IP/workstation name: [email or web address]
--- NOTE | 2018-02-22 10:52 | RADIOLOGY REPORT (SQ) ---
EXAM DESCRIPTION: T SPINE AP/LAT COMPLETED DATE/TIME: 02/22/2018 10:43 am REASON FOR STUDY: falls, back pain COMPARISON: None. NUMBER OF VIEWS: Two views. TECHNIQUE: AP and lateral radiographic images acquired of the thoracic spine. LIMITATIONS: None. FINDINGS: MINERALIZATION: Osteopenia. ALIGNMENT: Convex right scoliosis. VERTEBRAE: No fracture or bone lesion. Maintained height, normal segmentation. DISCS: Multilevel disc space narrowing with osteophytes. HARDWARE: None in the spine. MEDIASTINUM AND SOFT TISSUES: See separate report. VISUALIZED LUNG STANLEY: See separate report. OTHER: No other significant finding. IMPRESSION: SPONDYLOSIS WITHOUT BONE LESION OR FRACTURE. TECHNICAL DOCUMENTATION: JOB ID: [id number] [employer]- All Rights Reserved Reading location - IP/workstation name: [email or web address]
--- NOTE | 2018-02-22 10:57 | RADIOLOGY REPORT (SQ) ---
EXAM DESCRIPTION: L SPINE WHOLE COMPLETED DATE/TIME: 02/22/2018 10:44 am REASON FOR STUDY: falls, back pain COMPARISON: None recent. Correlation: CT lumbar spine 06/27/2016. NUMBER OF VIEWS: Five views including obliques. TECHNIQUE: AP, lateral, oblique, and sacral radiographic images acquired of the lumbar spine. LIMITATIONS: None. FINDINGS: MINERALIZATION: Osteopenia. SEGMENTATION: Normal. No transitional anatomy. ALIGNMENT: Grade 1 spondylolisthesis L4-5. VERTEBRAE: Compression fractures T12 and L1 with increased height loss at L1 compared to the prior. No obvious retropulsion. DISCS: Multilevel disc space narrowing with osteophytes. POSTERIOR ELEMENTS: Pedicles and facets are intact. No pars defect or posterior arch defects. Facet arthropathy is present. HARDWARE: None in the spine. PARASPINAL SOFT TISSUES: Normal. PELVIS: Intact as visualized. No fractures or worrisome bone lesions. SI joints intact. OTHER: No other significant finding. IMPRESSION: Compression fractures T12 and L1, present in June 2016. Progression of compression defor mity of L1. TECHNICAL DOCUMENTATION: JOB ID: [id number] [employer]- All Rights Reserved Reading location - IP/workstation name: [email or web address]
[2018-02-22 11:17] LABS: AMORPHOUS SEDIMENT,URINE TRACE /HPF; APPEARANCE,URINE CLEAR; BILIRUBIN,URINE NEGATIVE (NEGATIVE); COLOR,URINE YELLOW; GLUCOSE, URINE NEGATIVE (NEGATIVE); KETONES,URINE NEGATIVE (NEGATIVE); LEUKOCYTE ESTERASE,URINE NEGATIVE (NEGATIVE); NITRITE,URINE NEGATIVE (NEGATIVE); PROTEIN,URINE NEGATIVE (NEGATIVE); UROBILINOGEN,URINE NEGATIVE mg/dL (<2.0)
[2018-02-22 11:31] LABS: ABSOLUTE EOSINOPHILS # (AUTO) 0.3 10^3/uL (0.0-0.6); ABSOLUTE LYMPHOCYTES (AUTO) 1.1 10^3/uL (0.5-4.7); ABSOLUTE MONOCYTES (AUTO) 0.7 10^3/uL (0.1-1.4); ABSOLUTE NEUT (AUTO) 5.7 10^3/uL (1.7-8.2); BASOPHILS % (AUTO) 0.3 % (0-2); EOSINOPHILS % (AUTO) 3.4 % (0-6); HEMATOCRIT 39.4 % (37.9-51.0); HEMOGLOBIN 13.5 g/dL (13.5-17.0); LYMPHOCYTES % (AUTO) 14.2 % (13-45); MEAN CORPUSCULAR HEMOGLOBIN 32.7 pg (27.0-33.4); MEAN CORPUSCULAR HGB CONC 34.3 g/dL (32.0-36.0); MEAN CORPUSCULAR VOLUME 95 fl (80-97); MONOCYTES % (AUTO) 8.7 % (3-13); PLATELET COUNT 174 10^3/uL (150-450); RED BLOOD COUNT 4.13 10^6/uL (4.35-5.55); RED CELL DISTRIBUTION WIDTH 13.7 % (11.5-14.0); SEGMENTED NEUTROPHILS % (AUTO) 73.4 % (42-78); TOTAL CELLS COUNTED % (AUTO) 100 %; WHITE BLOOD COUNT 7.8 10^3/uL (4.0-10.5)
[2018-02-22 11:32] LABS: INTERNATIONAL RATION (INR) 1.03
[2018-02-22 11:33] LABS: PARTIAL THROMBOPLASTIN TIME 34.1 SEC (23.5-35.8)
[2018-02-22 11:56] LABS: ALANINE AMINOTRANSFERASE 23 U/L (21-72); ALBUMIN 3.5 g/dL (3.5-5.0); ALKALINE PHOSPHATASE 91 U/L (38-126); ANION GAP 9 (5-19); ASPARTATE AMINO TRANSFERASE 24 U/L (17-59); BILIRUBIN,DIRECT 0.4 mg/dL (0.0-0.4); BILIRUBIN,TOTAL 0.9 mg/dL (0.2-1.3); BLOOD UREA NITROGEN 23 mg/dL (7-20); CALCIUM 9.9 mg/dL (8.4-10.2); CARBON DIOXIDE 33 mmol/L (22-30); CHLORIDE 100 mmol/L (98-107); CREATINE KINASE 80 U/L (55-170); GLUCOSE 95 mg/dL (75-110); POTASSIUM 4.2 mmol/L (3.6-5.0); SODIUM 141.5 mmol/L (137-145); TOTAL PROTEIN 5.9 g/dL (6.3-8.2)
[2018-02-22 12:06] LABS: CREATINE KINASE MB 1.95 ng/mL (<4.55); TROPONIN I 0.023 ng/mL
[2018-02-22 17:07] VITALS: BP 140/62
== END 2018-02-22 17:15 | disposition home or self-care (01) ==
LOC: ER 08:42
DX: Z04.3 Encounter for examination and observation following other accident (principal); R53.1 Weakness; R20.0 Anesthesia of skin; R51 Headache; R26.2 Difficulty in walking, not elsewhere classified; R60.0 Localized edema; M54.9 Dorsalgia, unspecified; I10 Essential (primary) hypertension; Z88.5 Allergy status to narcotic agent
CPT/HCPCS: 36415; 70450; 71045; 72070; 72110; 72125; 80053; 81001; 82550; 82553; 84484; 85025; 85610; 85730; 93005; 93010; 99285

== ENCOUNTER 2018-03-03 01:53 | Inpatient (IN) | payer OTHER, MEDICARE ==
[2018-03-03] MEDS ORDERED: EPINEPHRINE INJ/PF 1 MG/1 ML AMPULE ONE (01:58)
[2018-03-03] MEDS ORDERED: PROPOFOL 1,000 MG/100 ML INFUS..BTL IV ONE (02:14)
[2018-03-03] MEDS ORDERED: NORMAL SALINE 1000 ML 1,000 ML IV ONE (02:14)
[2018-03-03] MEDS ORDERED: PROPOFOL 1,000 MG/100 ML INFUS..BTL IV PRN (02:14)
[2018-03-03] MEDS ORDERED: KETAMINE HCL INJ 500 MG/10 ML VIAL ONE (02:14)
--- NOTE | 2018-03-03 02:16 | ER Document Report ---
ED General - General Chief Complaint: Unresponsive Stated Complaint: ALTERED MENTAL STATUS Time Seen by Provider: 03/03/18 02:12 Cannot obtain history due to: Dementia, Unstable vital signs Notes: Patient is an 87-year-old male with a history of dementia, frequent falls, debility, presents by EMS for difficulty breathing, altered mental status, shaking, and gurgling. EMS reports that the patient had periods of severe bradycardia and hypotension in the field. No additional history can be obtained as patient is critically ill at time of presentation. TRAVEL OUTSIDE OF THE [place] IN LAST 30 DAYS: No - Related Data Allergies/Adverse Reactions: pentazocine lactate [From [employer]] Allergy (Unknown, Verified 09/15/11 16:15) Past Medical History - General Information source: Emergency Med Personnel Cannot obtain history due to: Dementia, Unstable vital signs - Social History Smoking Status: Unknown if Ever Smoked Frequency of alcohol use: None Drug Abuse: None Lives with: Family Family History: Reviewed & Not Pertinent - Past Medical History Cardiac Medical History: Reports: Hx Heart Attack - x2, Hx Hypercholesterolemia, Hx Hypertension Pulmonary Medical History: Denies: Hx Tuberculosis Renal/ Medical History: Reports: Hx Benign Prostatic Hyperplasia, Hx Kidney Stones. Denies: Hx Peritoneal Dialysis GI Medical History: Reports: Hx Gastroesophageal Reflux Disease Musculoskeletal Medical History: Reports Hx Arthritis Past Surgical History: Reports: Hx Cardiac Catheterization - stent , Hx Cardiac Surgery, Hx Coronary Artery Bypass Graft, Hx Open Heart Surgery - CABG x2 2007 vidant. Denies: Hx Pacemaker - Immunizations Hx Diphtheria, Pertussis, Tetanus Vaccination: Yes - 2009 Hx Pneumococcal Vaccination: 03/06/06 Review of Systems - Review of Systems -: Yes ROS unobtainable due to patient's medical condition Physical Exam - Vital signs Vitals: Pulse Resp BP Pulse Ox 47 L 10 L 157/121 H 97 03/03/18 01:54 03/03/18 01:54 03/03/18 01:54 03/03/18 01:54 Interpretation: Hypertensive, Bradycardic Notes: PHYSICAL EXAMINATION: GENERAL: Elderly, unresponsive, GCS 3 HEAD: Atraumatic, normocephalic. EYES: Left pupil 3 mm, right pupil ENT: nares patent, oropharynx clear without exudates. Dry mucous membranes. NECK:supple without lymphadenopathy LUNGS: Rhonchorous breath sounds, moderate hypoventilation HEART: Regular bradycardia without murmurs ABDOMEN: Soft, normoactive bowel sounds. No guarding, no rebound. No masses appreciated. EXTREMITIES: no pitting or edema. No cyanosis. NEUROLOGICAL: Does not follow commands in any extremity, no response to noxious stimuli in the bilateral lower extremities. Nonlocalizing movement with the rig ht upper extremity with noxious stimuli. PSYCH: Obtunded, GCS 3 SKIN: Warm, Dry, poor turgor Course - Re-evaluation Re-evalutation: 03/03/18 02:15 Patient presents obtunded, does not follow commands in any extremity, GCS 3, unequal pupils, 3 mm on left, pinpoint on the right. Has had repeated falls over the last several days per EMS report from the family. The patient was initially bradycardic although this did spontaneously resolved at the time of my assessment. He was noted to be moderately hypotensive in the field although it was actually slightly hypertensive on presentation. The patient was not at all protecting his airway, gurgling breath sounds, required airway protection. Initially an epinephrine drip was prepared in anticipation that the patient can have recurrent bradycardia or hypotension but this was not necessary and that medication was not administered. The patient was are side without any difficu lty using ketamine and succinylcholine. Patient will go for an immediate CT of the head and cervical spine. Propofol as needed for sedation. IV fluids have been initiated as the patient did appear markedly dehydrated. I did confirm with EMS that the patient is a full code prior to proceeding with all the above interventions. 03/03/18 02:24 Concern for possible development of a Orefield's reaction as patient is becoming increasingly bradycardic and severely hypertensive. 03/03/18 02:33 Nicardipine infusion was ordered but never started as the patient's blood pressure has now become hypotensive. Patient is having rapid fluctuations of his blood pressure from hypertensive to hypotensive and these been verified with manual readings. Currently all medications are being held with the exception of normal saline. The patient did undergo CT of the head which I personally witnessed being completed. Does not demonstrate any evidence of intracranial bleed. It is possible that the patient could have an acute infarction causing his unequal pupils. It is also entirely possible that his overall clinical presentation is not related to recent trauma, could be cardiac in origin, infectious, or multisystem organ failure. Will broaden laboratory assessment and continue to reassess at regular intervals. Patient remains in extremely critical condition. 03/03/18 02:56 Patient continues to have autonomic instability periods where he becomes bradycardic and then has normalization of his heart rate although has not had recurrence of hypotension. The patient did again began to spontaneously ventilate, propofol was reinitiated without a bolus. Patient remains in critical condition. Remarkably his labs thus far are completely unremarkable. Chest x-ray shows appropriate position of ET tube without evidence of pneumonia. 03/03/18 03:23 I had an extended conversation with the patient's , daughter, and they have informed me that the patient is always stated that he would not want to be kept artificially alive on a ventilator, would not want aggressive measures at the end of life. We have therefore elected to proceed with comfort measures only. The patient will be extubated, kept on oxygen as needed for comfort, and morphine will be initiated as needed. Glycopyrrolate will likewise be administered. Family would like to be at the bedside after extubation and monitor wires have been removed. 03/03/18 04:01 Family at bedside. Patient continues to have brief periods of apnea, mild hypoxemia, although continues to have varying vitals rapidly. I discussed this case with Dr. Gerard for admission for comfort measures. He is agreed to admit patient to medical floor for comfort. - Vital Signs Vital signs: Temp Pulse Resp BP Pulse Ox 47 L 17 170/82 H 95 03/03/18 01:54 03/03/18 04:25 03/03/18 03:38 03/03/18 04:25 - Laboratory Result Diagrams: 03/03/18 02:20 03/03/18 02:20 Laboratory results interpreted by me: 03/03/18 03/03/18 02:20 02:20 RBC 4.08 L BUN 24 H Creatinine 1.29 H Est GFR (Non-Af Amer) 53 L ALT 19 L Total Protein 6.1 L Albumin 3.4 L - Diagnostic Test Radiology reviewed: Image reviewed, Reports reviewed Radiology results interpreted by me: 03/03/18 05:07 CT head: No acute intracranial bleed or mass Chest x-ray: ET tube in appropriate position, no infiltrate Procedures - Intubation Orotracheal Airway evaluation: Normal anatomy Mallampati Classification: Class 1 Medications: Succinylcholine, Ketamine Intubation method: Orotracheal Blade type: Roma Blade size: 3 Equipment used: Glidescope ETT size: 8.0 ETT secured at: Lips ETT secured at (cm): 23 Breath Sounds after Intubation: Equal End tidal CO2 confirmed: Yes Ventilator settings: SIMV Tidal volume: 400 FiO2: 60 Respirations: 16 PEEP: 5 Post Intubation Xray: Yes Intubation Complications: No complications Critical Care Note - Critical Care Note Total time excluding time spent on procedures (mins): 80 Comments: Critical care time spent obtaining history from patient or surrogate, discussions with consultants, development of treatment plan with patient or surrogate, evaluation of patient's response to treatment, examination of patient, ordering and performing treatments and interventions, ordering and review of laboratory studies, re-evaluation of patient's condition, ordering and review of radiographic studies and review of old charts Discharge - Discharge Clinical Impression: Autonomic instability, Apnea Altered mental status Qualifiers: Altered mental status type: stupor Qualified Code(s): R40.1 - Stupor Condition: Critical Disposition: ADMITTED INPATIENT Admitting Provider: Hospitalist Unit Admitted: Medical Floor
[2018-03-03] MEDS ORDERED: NICARDIPINE HCL RTU, ISO-OS 20 MG/200 ML RTUINJ IV ONE (02:21)
[2018-03-03] MEDS ORDERED: NICARDIPINE HCL RTU, ISO-OS 20 MG/200 ML RTUINJ IV PRN (02:24)
[2018-03-03] MEDS ORDERED: MANNITOL 25% INJ 12.5 GM/50 ML VIAL IV ONE (02:24)
[2018-03-03 02:33] LABS: ABSOLUTE EOSINOPHILS # (AUTO) 0.2 10^3/uL (0.0-0.6); ABSOLUTE LYMPHOCYTES (AUTO) 1.3 10^3/uL (0.5-4.7); ABSOLUTE MONOCYTES (AUTO) 0.6 10^3/uL (0.1-1.4); BASOPHILS % (AUTO) 0.5 % (0-2); EOSINOPHILS % (AUTO) 3.1 % (0-6); HEMATOCRIT 38.7 % (37.9-51.0); HEMOGLOBIN 13.5 g/dL (13.5-17.0); LYMPHOCYTES % (AUTO) 17.9 % (13-45); MEAN CORPUSCULAR HEMOGLOBIN 33.1 pg (27.0-33.4); MEAN CORPUSCULAR HGB CONC 34.9 g/dL (32.0-36.0); MEAN CORPUSCULAR VOLUME 95 fl (80-97); MONOCYTES % (AUTO) 8.3 % (3-13); PLATELET COUNT 196 10^3/uL (150-450); RED BLOOD COUNT 4.08 10^6/uL (4.35-5.55); RED CELL DISTRIBUTION WIDTH 13.7 % (11.5-14.0); SEGMENTED NEUTROPHILS % (AUTO) 70.2 % (42-78); TOTAL CELLS COUNTED % (AUTO) 100 %; WHITE BLOOD COUNT 7.2 10^3/uL (4.0-10.5)
--- NOTE | 2018-03-03 02:40 | RADIOLOGY REPORT (SQ) ---
EXAM DESCRIPTION: XR CHEST 1 VIEW COMPLETED DATE/TME: 03/03/2018 02:13 CLINICAL HISTORY: 87 years, Male, post-intubation COMPARISON: 02/22/2018 NUMBER OF VIEWS: One TECHNIQUE: AP view of the chest LIMITATIONS: None. FINDINGS: Endotracheal tube terminates 2.2 cm above the josé miguel. The lungs are clear. The heart is enlarged. There is no pneumothorax or pleural effusion. The bones are unchanged. IMPRESSION: Satisfactory position of the endotracheal tube copyright 2010 [employer]- All Rights Reserved
[2018-03-03 02:42] LABS: INTERNATIONAL RATION (INR) 1.07; PROTHROMBIN TIME 14.4 SEC (11.4-15.4)
[2018-03-03 02:43] LABS: PARTIAL THROMBOPLASTIN TIME 32.5 SEC (23.5-35.8)
[2018-03-03 02:54] LABS: ALANINE AMINOTRANSFERASE 19 U/L (21-72); ALBUMIN 3.4 g/dL (3.5-5.0); ALKALINE PHOSPHATASE 89 U/L (38-126); ANION GAP 7 (5-19); ASPARTATE AMINO TRANSFERASE 40 U/L (17-59); BILIRUBIN,DIRECT 0.4 mg/dL (0.0-0.4); BILIRUBIN,TOTAL 0.8 mg/dL (0.2-1.3); BLOOD UREA NITROGEN 24 mg/dL (7-20); CALCIUM 9.4 mg/dL (8.4-10.2); CARBON DIOXIDE 30 mmol/L (22-30); CHLORIDE 101 mmol/L (98-107); CREATINE KINASE 147 U/L (55-170); GLUCOSE 106 mg/dL (75-110); POTASSIUM 4.1 mmol/L (3.6-5.0); SODIUM 138.3 mmol/L (137-145); TOTAL PROTEIN 6.1 g/dL (6.3-8.2)
--- NOTE | 2018-03-03 02:57 | RADIOLOGY REPORT (SQ) ---
EXAM DESCRIPTION: CT HEAD WITHOUT IV CONTRAST COMPLETED DATE/TME: 03/03/2018 00:00 CLINICAL HISTORY: 87 years Male, ams COMPARISON:02/22/2018 TECHNIQUE: No contrast. Coronal and sagittal reformat. This exam was performed according to our departmental dose-optimization program, which includes automated exposure control, adjustment of the mA and/or kV according to patient size and/or use of iterative reconstruction technique. FINDINGS: No hemorrhage or infarct. No mass, mass effect, or midline shift. White matter microangiopathy, parenchymal volume loss, and atherosclerosis. Brain and extra-axial structures appear otherwise intact. Endotracheal tube partially imaged. IMPRESSION: No acute findings.
--- NOTE | 2018-03-03 03:00 | RADIOLOGY REPORT (SQ) ---
EXAM DESCRIPTION: CT CERVICAL SPINE WITHOUT IV CONTRAST COMPLETED DATE/TME: 03/03/2018 00:00 CLINICAL HISTORY: 87 years Male, fall Comparison:02/22/2018 Technique: No contrast. Coronal and sagittal reformat. This exam was performed according to our departmental dose-optimization program, which includes automated exposure control, adjustment of the mA and/or kV according to patient size and/or use of iterative reconstruction technique.[facility]: Dose Right [facility]: CareDose [facility]: Dose Right [facility]: Teradose 4D [facility]: Arkmicro LIMITATIONS: None Findings: Normal alignment. Normal lordotic curvature. Moderate cervicothoracic levo convexity. No fracture. Normal vertebral heights.Bone demineralization. Moderate disc desiccation, moderate spondylosis, [id number] bilateral C4, C5, and C6 bony foraminal stenoses. Partially imaged nuchal soft tissues, inferior cranium, and upper thorax appear otherwise grossly intact. Endotracheal tube partially imaged.Atherosclerotic vascular disease. IMPRESSION: No acute findings.
[2018-03-03 03:05] LABS: CREATINE KINASE MB 2.83 ng/mL (<4.55)
[2018-03-03 03:15] LABS: TROPONIN I 0.037 ng/mL
[2018-03-03] MEDS ORDERED: GLYCOPYRROLATE INJ 0.4 MG/2 ML VIAL IM ONE (03:22)
[2018-03-03] MEDS ORDERED: MORPHINE SULFATE 10 MG/ML INJ IV PRN (03:22)
[2018-03-03] MEDS ORDERED: DEXTROSE 40% GEL 15 GM TUBE PO PRN ×2 (04:56)
[2018-03-03] MEDS ORDERED: DEXTROSE 50%-WATER 25 GM/50 ML DISP.SYRIN IV PRN ×2 (04:56)
[2018-03-03] MEDS ORDERED: ACETAMINOPHEN 650 MG SUPP.RECT PR PRN (04:56)
[2018-03-03] MEDS ORDERED: GLUCAGON,HUMAN RECOMB 1 MG INJ SUBCUT PRN (04:56)
--- NOTE | 2018-03-03 07:47 | PDOC H&P ---
History of Present Illness Admission Date/PCP: 03/03/18 04:[facility] Patient complains of: Unresponsiveness History of Present Illness: ANGELLA SYED is a 87 year old male with a past medical history of end-stage dementia, frequent falls and debility. Presents via EMS after difficulty with breathing and altered mental status with apnea. In the emergency room he is found to have severe autonomic dysfunction with apnea hypotension, hypertension, bradycardia, tachycardia and asymmetric pupils. CT imaging and blood work is unremarkable. Patient is initially intubated however CODE STATUS is verified to be DNR, family at bedside desires comfort measures only. He is extubated to comfort measures only and referred to the hospitalist for admission. Past Medical History Cardiac Medical History: Reports: Myocardial Infarction - x2, Hyperlipidema, Hypertension Pulmonary Medical History: Denies: Tuberculosis GI Medical History: Reports: Gastroesophageal Reflux Disease Musculoskeltal Medical History: Reports: Arthritis Psychiatric Medical History: Reports: Dementia Past Surgical History Past Surgical History: Reports: Cardiac Catheterization - stent , Coronary Artery Bypass Graft Denies: Pacemaker Social History Information Source: Relative Lives with: Family Smoking Status: Unknown if Ever Smoked Hx Recreational Drug Use: No Hx Prescription Drug Abuse: No - Advance Directive Resuscitation Status: Comfort Measures Only Family History Family History: Other - Unobtainable Parental Family History Reviewed: No - Unobtainable Children Family History Reviewed: No - Unobtainable Sibling(s) Family History Reviewed.: No Medication/Allergy Home Medications: Amlodipine Besylate [Norvasc 10 mg Tablet] 5 mg PO DAILY 01/14/11 Aspirin [Aspirin 325 mg Tablet] 325 mg PO DAILY 01/14/11 Clonidine HCl [Catapres 0.2 mg Tablet] 0.2 mg PO BID 01/14/11 Doxycycline Hyclate 100 mg PO BID 01/14/11 Finasteride [Proscar 5 Mg Tablet] 5 mg PO DAILY 01/14/11 Furosemide [Lasix 20 mg Tablet] 20 mg PO ASDIR PRN 01/14/11 Gabapentin [Neurontin 300 mg Capsule] 300 mg PO TID 01/14/11 Hydrocodone Bit/Acetaminophen [Vicodin 5-500 mg Tablet] 7.5 mg PO QIDP PRN 01/14/11 Lactulose 1 tsp PO QHS PRN 01/14/11 Lisinopril [Prinivil 40 mg Tablet] 20 mg PO BID 01/14/11 [place]-3 Fatty Acids/Fish Oil [Fish Oil 1,000 Mg Capsule] 1 each PO BID 01/14/11 Pantoprazole Sodium 40 mg PO DAILY 01/14/11 Tamsulosin HCl [Flomax 0.4 mg Cap.sr] 0.4 mg PO DAILY 01/14/11 Hydrocodone/Acetaminophen [Hydrocodon-Acetaminophen 5-325] 1 each PO Q6 #20 tablet 01/27/16 Ondansetron [Zofran Odt 4 mg Tablet] 1 - 2 tab PO Q4H #10 tab.rapdis 01/27/16 Sulfamethoxazole/Trimethoprim [Bactrim Ds Tablet] 1 each PO BID #20 tablet 01/27/16 Tamsulosin HCl [Flomax 0.4 mg Cap.sr] 0.4 mg PO DAILY #7 cap.sr.24h 01/27/16 Allergies/Adverse Reactions: pentazocine lactate [From [place]] Allergy (Unknown, Verified 09/15/11 16:15) Review of Systems ROS unobtainable: Due to mental status - Unobtainable secondary to dementia Physical Exam Vital Signs: Temp Pulse Resp BP Pulse Ox 47 L 10 L 134/59 H 99 03/03/18 01:54 03/03/18 06:55 03/03/18 06:48 03/03/18 06:55 Intake & Output 03/01/18 03/02/18 03/03/18 11:59 11:59 11:59 Weight 83.3 kg General appearance: PRESENT: severe distress, thin. ABSENT: no acute distress, cooperative Head exam: PRESENT: atraumatic, normocephalic Eye exam: PRESENT: conjunctiva pink. ABSENT: EOMI, PERRLA, scleral icterus Ear exam: PRESENT: normal external ear exam Mouth exam: PRESENT: moist, tongue midline Neck exam: ABSENT: carotid bruit, JVD, lymphadenopathy, thyromegaly Respiratory exam: PRESENT: accessory muscle use, prolonged expiratory phas, rales, rhonchi Cardiovascular exam: PRESENT: bradycardia, irregular rhythm, tachycardia Pulses: PRESENT: normal dorsalis pedis pul Vascular exam: PRESENT: normal capillary refill GI/Abdominal exam: PRESENT: normal bowel sounds, soft. ABSENT: distended, guarding, mass, organolmegaly, rebound, tenderness Rectal exam: PRESENT: deferred Extremities exam: PRESENT: full ROM. ABSENT: calf tenderness, clubbing, pedal edema Neurological exam: PRESENT: altered. ABSENT: alert, awake, CN II-XII grossly intact Psychiatric exam: ABSENT: anxious, appropriate affect, depressed Focused psych exam: ABSENT: catatonic, delusional, euphoric, flight of ideas Skin exam: PRESENT: dry, intact, warm. ABSENT: cyanosis, rash Results Laboratory Results: 03/03/18 02:20 03/03/18 02:20 03/03/18 03/03/18 03/03/18 02:20 02:20 02:20 WBC 7.2 RBC 4.08 L Hgb 13.5 Hct 38.7 MCV 95 MCH 33.1 MCHC 34.9 RDW 13.7 Plt Count 196 Seg Neutrophils % 70.2 Lymphocytes % 17.9 Monocytes % 8.3 Eosinophils % 3.1 Basophils % 0.5 Absolute Neutrophils 5.0 Absolute Lymphocytes 1.3 Absolute Monocytes 0.6 Absolute Eosinophils 0.2 Absolute Basophils 0.0 Sodium 138.3 Potassium 4.1 Chloride 101 Carbon Dioxide 30 Anion Gap 7 BUN 24 H Creatinine 1.29 H Est GFR ( Amer) > 60 Est GFR (Non-Af Amer) 53 L Glucose 106 Lactic Acid 1.3 Calcium 9.4 Total Bilirubin 0.8 AST 40 ALT 19 L Alkaline Phosphatase 89 Total Protein 6.1 L Albumin 3.4 L 03/03/18 03/03/18 02:20 02:20 Creatine Kinase 147 CK-MB (CK-2) 2.83 Troponin I 0.037 Impressions: Cervical Spine CT 03/03/18 00:00 IMPRESSION: No acute findings. Head CT 03/03/18 00:00 IMPRESSION: No acute findings. Chest X-Ray 03/03/18 02:13 IMPRESSION: Satisfactory position of the endotracheal tube copyright 2010 [employer]- All Rights Reserved Assessment & Plan - Diagnosis (1) Altered mental status Qualifiers: Altered mental status type: stupor Qualified Code(s): R40.1 - Stupor Is this a current diagnosis for this admission?: Yes Plan: Secondary to end-stage dementia with Shy-Drager's. Comfort measures only, discharge planning consulted for hospice (2) Apnea Is this a current diagnosis for this admission?: Yes Plan: Please see #1 (3) Autonomic instability Is this a current diagnosis for this admission?: Yes Plan: Please see #1 - Time Time Spent: 50 to 70 Minutes - Inpatient Certification Medical Necessity: Need Close Monitoring Due to Risk of Patient Decompensation
[2018-03-03] MEDS ORDERED: SUCCINYLCHOLINE CHLORIDE INJ 200 MG/10 ML VIAL ONE (10:48)
[2018-03-03] MEDS: MORPHINE SULFATE 10 MG/ML INJ IV PRN (12:29)
--- NOTE | 2018-03-03 12:40 | EKG REPORT ---
SEVERITY:- ABNORMAL ECG - SINUS RHYTHM IVCD, CONSIDER ATYPICAL RBBB : Confirmed by: Sue Goddard MD 03-Mar-2018 12:40:29
[2018-03-03] MEDS: CYCLOSPORINE 0.05% OPH EMULSIO 0.4 ML DROPERETTE OU SCH ×2 (13:36→22:05)
--- NOTE | 2018-03-03 16:01 | PDOC PROGRESS REPORT ---
Subjective Progress Note for:: 03/03/18 Subjective:: The patient is an 87-year-old male with a past medical history of end-stage dementia, frequent falls, debility, ND x2, hypertension, hyperlipidemia, GERD, arthritis who was admitted 03/03/2018 for altered mental status and autonomic instability; patient was intubated, subsequently extubated once family arrived and confirmed DNR status and desire to pursue comfort care measures. Patient is seen multiple times through the day with numerous family members present. His vital signs remained stable with a heart rate in the 60s, blood pressures of 150/65, and maintaining oxygen saturations while on room air though with a highly variable respiratory rate (RR 6 - 20; ? JARROD). The patient is somnolent, but intermittently awake, oriented to self, answers short questions appropriately but with limited following of commands. Discussed with the patient's family members his CODE STATUS; they desire to remain DNR/DNI with comfort care order set in place. Will questions and concerns were addressed. No concerns per nursing. Reason For Visit: DEMENTIA,ACUTE RESP FAILURE,AUTONOMIC DYSFUNCTION Physical Exam Vital Signs: Temp Pulse Resp BP Pulse Ox 99.8 F 47 L 16 154/65 H 100 03/03/18 14:05 03/03/18 01:54 03/03/18 14:05 03/03/18 13:01 03/03/18 14:05 Intake & Output 03/02/18 03/03/18 03/04/18 06:59 06:59 06:59 Intake Total 0 Output Total 0 Balance 0 Weight 83.3 kg 84.5 kg General appearance: PRESENT: no acute distress, hard of hearing, well-developed, well-nourished Head exam: PRESENT: atraumatic, normocephalic Eye exam: PRESENT: conjunctival injection, EOMI, PERRLA. ABSENT: scleral icterus Ear exam: PRESENT: normal external ear exam Mouth exam: PRESENT: dry mucosa, tongue midline Neck exam: ABSENT: carotid bruit, JVD, lymphadenopathy, thyromegaly Respiratory exam: PRESENT: prolonged expiratory phas, rhonchi, symmetrical, unlabored, other - Irregular respirations; rate of 6-20, though maintaining oxygen saturations on room air. ABSENT: rales, wheezes Cardiovascular exam: PRESENT: bradycardia, irregular rhythm, +S1, +S2. ABSENT: diastolic murmur, rubs, systolic murmur Pulses: PRESENT: normal dorsalis pedis pul Vascular exam: PRESENT: normal capillary refill GI/Abdominal exam: PRESENT: normal bowel sounds, soft. ABSENT: distended, guarding, mass, organolmegaly, rebound, tenderness Rectal exam: PRESENT: deferred Extremities exam: PRESENT: full ROM. ABSENT: calf tenderness, clubbing, pedal edema Neurological exam: PRESENT: alert, awake, oriented to person, CN II-XII grossly intact, other - Arousable; briefly answers questions appropriately, oriented to self and family members, intermittently follows commands with multiple prompting. ABSENT: oriented to place, oriented to time, oriented to situation, motor sensory deficit Psychiatric exam: PRESENT: appropriate affect, normal mood. ABSENT: homicidal ideation, suicidal ideation Skin exam: PRESENT: dry, intact, warm. ABSENT: cyanosis, rash Results Laboratory Results: 03/03/18 02:20 03/03/18 02:20 03/03/18 03/03/18 03/03/18 02:20 02:20 02:20 WBC 7.2 RBC 4.08 L Hgb 13.5 Hct 38.7 MCV 95 MCH 33.1 MCHC 34.9 RDW 13.7 Plt Count 196 Seg Neutrophils % 70.2 Lymphocytes % 17.9 Monocytes % 8.3 Eosinophils % 3.1 Basophils % 0.5 Absolute Neutrophils 5.0 Absolute Lymphocytes 1.3 Absolute Monocytes 0.6 Absolute Eosinophils 0.2 Absolute Basophils 0.0 Sodium 138.3 Potassium 4.1 Chloride 101 Carbon Dioxide 30 Anion Gap 7 BUN 24 H Creatinine 1.29 H Est GFR ( Amer) > 60 Est GFR (Non-Af Amer) 53 L Glucose 106 Lactic Acid 1.3 Calcium 9.4 Total Bilirubin 0.8 AST 40 ALT 19 L Alkaline Phosphatase 89 Total Protein 6.1 L Albumin 3.4 L 03/03/18 03/03/18 03/03/18 02:20 02:20 11:44 Creatine Kinase 147 CK-MB (CK-2) 2.83 Troponin I 0.037 0.023 Impressions: Cervical Spine CT 03/03/18 00:00 IMPRESSION: No acute findings. Head CT 03/03/18 00:00 IMPRESSION: No acute findings. Chest X-Ray 03/03/18 02:13 IMPRESSION: Satisfactory position of the endotracheal tube copyright 2011 [employer]- All Rights Reserved Assessment & Plan - Diagnosis (1) Altered mental status Qualifiers: Altered mental status type: somnolence Qualified Code(s): R40.0 - Raji nolence Is this a current diagnosis for this admission?: Yes Plan: Secondary to end-stage dementia with Shy-Drager's. Head CT revealed changes associated with age, no acute findings, no acute CVA. Cervical CT was negative for acute findings. Chest x-ray was benign. EKG demonstrated sinus rhythm with an intraventricular conduction delay. Troponins are negative x2. The patient is now intermittently awake, oriented to self and recognizes family members; answers simple questions and follows simple commands appropriately. He is noted to have an irregular respiratory rhythm and bradycardia. Patient's family members have requested comfort care measures. Discharge planning is consulted for hospice arrangements. Comfort care order set in place; IV morphine, Ativan, SL atropine drops, RI Tylenol as needed for symptom management. Pured diet with nectar thick liquids for pleasure feeds; patient's family educated on aspiration precautions. Oxygen 2 L/min via nasal cannula for comfort. (2) Apnea Is this a current diagnosis for this admission?: Yes Plan: Secondary to #1. Patient was initially intubated by emergency department personnel and subsequently extubated when the patient's family arrived and confirmed his DNR/DNI status with desire to pursue hospice services. Patient is now noted to have irregular breathing with frequent pauses while sleeping (Shy-Drager's versus JARROD), there was currently maintaining oxygen saturations. (3) Autonomic instability Is this a current diagnosis for this admission?: Yes Plan: Secondary to #1; plan as above. - Time Time Spent with patient: 35 or more minutes Medications reviewed and adjusted accordingly: Yes Anticipated discharge: Hospice Within: when bed available
[2018-03-03] MEDS: LORAZEPAM INJ 2 MG/1 ML VIAL IV PRN ×3 (16:41→21:47)
[2018-03-03 16:59] VITALS: BP 121/55
[2018-03-03] MEDS: ATROPINE SULFATE 1% OPH SOLN 5 ML BOTTLE SL PRN ×2 (21:48→21:59)
[2018-03-04] MEDS: LORAZEPAM INJ 2 MG/1 ML VIAL IV PRN ×4 (00:41→22:33)
[2018-03-04] MEDS: MORPHINE SULFATE 10 MG/ML INJ IV PRN ×4 (03:37→22:32)
[2018-03-04] MEDS ORDERED: LIDOCAINE 2% URO-JET 5 ML KIT MM ONE (07:44)
--- NOTE | 2018-03-04 09:25 | PDOC CONSULTATION ---
Consultation Consult Date: 03/04/18 History of Present Illness Admission Date/PCP: 03/03/18 04:36 [facility] History of Present Illness: ANGELLA SYED is a 87 year old male Past Medical History Cardiac Medical History: Reports: Myocardial Infarction - x2, Hyperlipidema, Hypertension Pulmonary Medical History: Denies: Tuberculosis GI Medical History: Reports: Gastroesophageal Reflux Disease Musculoskeltal Medical History: Reports: Arthritis Psychiatric Medical History: Reports: Dementia Denies: Depression Past Surgical History Past Surgical History: Reports: Cardiac Catheterization - stent , Coronary Artery Bypass Graft Denies: Pacemaker Social History Lives with: Family Smoking Status: Former Smoker Frequency of Alcohol Use: None Hx Recreational Drug Use: No Drugs: None Hx Prescription Drug Abuse: No - Advance Directive Resuscitation Status: Comfort Measures Only Family History Family History: Other - Unobtainable Parental Family History Reviewed: No Children Family History Reviewed: Unknown Sibling(s) Family History Reviewed.: Unknown Medication/Allergy Home Medications: Unobtainable 03/03/18 Allergies/Adverse Reactions: pentazocine lactate [From [place]] Allergy (Unknown, Verified 09/15/11 16:15) Physical Exam Vital Signs: Temp Pulse Resp BP Pulse Ox 99.9 F 47 L 11 L 121/55 L 99 03/03/18 14:30 03/03/18 01:54 03/03/18 16:01 03/03/18 16:01 03/03/18 16:01 Intake & Output 03/03/18 03/04/18 03/05/18 06:59 06:59 06:59 Intake Total 0 Output Total 0 Balance 0 Weight 83.3 kg 84.5 kg General appearance: PRESENT: mild distress GI/Abdominal exam: PRESENT: other - lower abd distended secondary to full bladder, greater than 1000cc noted by ultrasound Gentrourinary exam: PRESENT: urethral discharge - small blood clots from meatus. Results Laboratory Results: 03/03/18 02:20 03/03/18 02:20 03/03/18 03/03/18 03/03/18 02:20 02:20 11:44 Creatine Kinase 147 CK-MB (CK-2) 2.83 Troponin I 0.037 0.023 Impressions: Cervical Spine CT 03/03/18 00:00 IMPRESSION: No acute findings. Head CT 03/03/18 00:00 IMPRESSION: No acute findings. Chest X-Ray 03/03/18 02:13 IMPRESSION: Satisfactory position of the endotracheal tube copyright 2011 [employer]- All Rights Reserved Assessment & Plan - Plan Summary Plan Summary: obsturcted urethra plan placed 22f 3-way catheter with good output will irrigate prn pt is on comfort measures.
[2018-03-04] MEDS: CYCLOSPORINE 0.05% OPH EMULSIO 0.4 ML DROPERETTE OU SCH ×2 (12:38→22:32)
--- NOTE | 2018-03-04 15:16 | PDOC TRANSFER SUMMARY ---
General - Admit/Disc Date/PCP Admission Date/Primary Care Provider: 03/03/18 04:36 [facility] Discharge Date: 03/05/18 - Discharge Diagnosis (1) Altered mental status Is this a current diagnosis for this admission?: Yes (2) Apnea Is this a current diagnosis for this admission?: Yes (3) Autonomic instability Is this a current diagnosis for this admission?: Yes (4) Advanced dementia Is this a current diagnosis for this admission?: Yes (5) Hematuria Is this a current diagnosis for this admission?: Yes (6) Urinary retention Is this a current diagnosis for this admission?: Yes - Additional Information Resuscitation Status: Comfort Measures Only Discharge Diet: As Tolerated Discharge Activity: Bedrest Prescriptions: Lorazepam [Ativan Inj 2 mg/1 ml Vial] 1 mg IV Q2HP PRN #5 vial PRN Reason: Morphine Sulfate [Morphine 10 mg/ml Inj] 2 mg IV Q4HP PRN #10 vial PRN Reason: Home Medications: Acetaminophen [Tylenol 650 mg Supp] 650 mg ID Q4HP PRN supp.rect 03/04/18 Atropine Sulfate [Atropine 1% Oph Soln 5 ml] 2 drop SL Q6 PRN bottle 03/04/18 Cyclosporine 0.05% Oph Emulsio [Restasis 0.05% Oph Emulsion Pf 0.4 ml] 1 drop OU Q12 droperette 03/04/18 Lorazepam [Ativan Inj 2 mg/1 ml Vial] 1 mg IV Q2HP PRN #5 vial 03/04/18 Morphine Sulfate [Morphine 10 mg/ml Inj] 2 mg IV Q4HP PRN #10 vial 03/04/18 History of Present Illness Admission Date/PCP: 03/03/18 04:36 [facility] History of Present Illness: Per H&P by Dr. Gerard: ANGELLA SYED is a 87 year old male with a past medical history of end-stage dementia, frequent falls and debility. Presents via EMS after difficulty with breathing and altered mental status with apnea. In the emergency room he is found to have severe autonomic dysfunction with apnea hypotension, hypertension, bradycardia, tachycardia and asymmetric pupils. CT imaging and blood work is unremarkable. Patient is initially intubated however CODE STATUS is verified to be DNR, family at bedside desires comfort measures only. He is extubated to comfort measures only and referred to the hospitalist for admission. Hospital Course Hospital Course: The patient was initially intubated secondary to agonal respirations and profound hypoxia. Upon arrival of the patient's family members to the emergency department; it was determined that the patient was a DNR/DNI who would not request aggressive/life-prolonging measures. The patient's family members have requested comfort care measures only with discharge to an inpatient hospice facility. The patient was admitted to the medical floor with comfort care order set in place; IV morphine, Ativan, sublingual atropine drops, and ID Tylenol as needed for symptom management. Patient was placed on supplemental oxygen via nasal cannula for comfort only. Patient's family members were educated that the patient may eat or drink for pleasure; however, they were advised of the high risk for aspiration event. The patient has not been alert enough to have had any meaningful p.o. intake since admission. Nursing did note that the patient had no urinary output despite a Ambriz catheter being placed. The Ambriz catheter was removed and vandana hematuria with blood clots was noted. Ambriz catheter was removed and replaced; scant amount of urine output was noted. Despite all attempts to flush the catheter, the obstruction was not relieved. Surgery was consulted and, fortunately, was able to place and irrigate through a triple-lumen catheter with resultant 1 L output of hematuria. Will continue ambriz catheter flushes every 6 hours and as needed to prevent further obstruction. Discharge planning met with the patient's and one of his daughters today. The patient's expressed an interest in [facility] in [place] as it is close to family members living in [place]. [facility] has accepted the patient and anticipate room availability early tomorrow. Physical Exam Vital Signs: Temp Pulse Resp BP Pulse Ox 99.9 F 47 L 11 L 121/55 L 99 03/03/18 14:30 03/03/18 01:54 03/03/18 16:01 03/03/18 16:01 03/03/18 16:01 Intake & Output 03/03/18 03/04/18 03/05/18 06:59 06:59 06:59 Intake Total 0 Output Total 0 Balance 0 Weight 83.3 kg 84.5 kg General appearance: PRESENT: no acute distress, hard of hearing, well-developed, well-nourished Head exam: PRESENT: atraumatic, normocephalic Eye exam: PRESENT: conjunctival injection, EOMI, PERRLA. ABSENT: scleral icterus Ear exam: PRESENT: normal external ear exam Mouth exam: PRESENT: dry mucosa, tongue midline Neck exam: ABSENT: carotid bruit, JVD, lymphadenopathy, thyromegaly Respiratory exam: PRESENT: prolonged expiratory phas, rhonchi, unlabored, other - Irregular respiratory rate. SPO2 86% on room air; 2 LPM per nasal cannula for patient comfort.. ABSENT: rales, wheezes Cardiovascular exam: PRESENT: bradycardia, irregular rhythm, +S1, +S2. ABSENT: diastolic murmur, rubs Pulses: PRESENT: normal dorsalis pedis pul Vascular exam: PRESENT: normal capillary refill GI/Abdominal exam: PRESENT: normal bowel sounds, soft. ABSENT: distended, guarding, mass, organolmegaly, rebound, tenderness Rectal exam: PRESENT: deferred Gentrourinary exam: PRESENT: indwelling catheter - Vandana hematuria/clots Extremities exam: PRESENT: other - Spontaneous movements all extremities. ABSENT: calf tenderness, clubbing, pedal edema Neurological exam: PRESENT: alert, awake, oriented to person, CN II-XII grossly intact, other - Arousable; appears to recognize family members. Occasionally will answer simple questions or make appropriate conversational statements. Otherwise somnolent.. ABSENT: motor sensory deficit Psychiatric exam: PRESENT: appropriate affect, normal mood. ABSENT: homicidal ideation, suicidal ideation Skin exam: PRESENT: dry, intact, warm. ABSENT: cyanosis, rash Results Laboratory Results: 03/03/18 02:20 03/03/18 02:20 03/03/18 03/03/18 03/03/18 02:20 02:20 11:44 Creatine Kinase 147 CK-MB (CK-2) 2.83 Troponin I 0.037 0.023 Impressions: Cervical Spine CT 03/03/18 00:00 IMPRESSION: No acute findings. Head CT 03/03/18 00:00 IMPRESSION: No acute findings. Chest X-Ray 03/03/18 02:13 IMPRESSION: Satisfactory position of the endotracheal tube copyright 2011 [email or web address]- All Rights Reserved Transfer Plan - Disposition Transfer Plan: Transfer to [facility]. - Time Spent with Patient Time spent with patient: Greater than 30 Minutes Qualifiers - * PATIENT BEING DISCHARGED WITH ANY OF THE FOLLOWING DIAGNOSIS: No Plan Discharge Plan: Discharge to [facility] inpatient hospice once bed is available. Time Spent: Greater than 30 Minutes
[2018-03-04] MEDS ORDERED: LORAZEPAM INJ 2 MG/1 ML VIAL ONE (16:05)
[2018-03-04] MEDS ORDERED: LORAZEPAM INJ 2 MG/1 ML VIAL IV ONE (16:30)
[2018-03-05] MEDS: LORAZEPAM INJ 2 MG/1 ML VIAL IV PRN ×7 (01:26→23:45)
[2018-03-05] MEDS: MORPHINE SULFATE 10 MG/ML INJ IV PRN ×6 (01:26→23:28)
[2018-03-05] MEDS: CYCLOSPORINE 0.05% OPH EMULSIO 0.4 ML DROPERETTE OU SCH ×2 (10:55→21:41)
--- NOTE | 2018-03-05 17:03 | PDOC PROGRESS REPORT ---
Subjective Progress Note for:: 03/05/18 Subjective:: The patient is an 87-year-old male with a past medical history of end-stage dementia, frequent falls, debility, CO x2, hypertension, hyperlipidemia, GERD, arthritis who was admitted 03/03/2018 for altered mental status and autonomic instability; patient was intubated, subsequently extubated once family arrived and confirmed DNR status and desire to pursue comfort care measures. Patient is seen multiple times through the day with numerous family members present. The patient is medicated for anxiety/agitation and discomfort via order care set. The patient's reports that he was briefly awake overnight, but otherwise has appeared comfortable. She expresses appreciation with the decision to keep the patient at our facility as he is not felt to be stable en ough for a 90 min transport. Patient withdraws to stimuli, but otherwise is non-responsive for me. ROS limited secondary to the above. Family's questions and concerns were addressed. No concerns per nursing. Reason For Visit: DEMENTIA,ACUTE RESP FAILURE,AUTONOMIC DYSFUNCTION Physical Exam Vital Signs: Temp Pulse Resp BP Pulse Ox 99.9 F 47 L 11 L 121/55 L 99 03/03/18 14:30 03/03/18 01:54 03/03/18 16:01 03/03/18 16:01 03/03/18 16:01 Intake & Output 03/04/18 03/05/18 03/06/18 06:59 06:59 06:59 Intake Total 0 0 Output Total 0 1800 Balance 0 -1800 Weight 84.5 kg General appearance: PRESENT: hard of hearing, well-developed, well-nourished, other - Chronically ill appearing Head exam: PRESENT: atraumatic, normocephalic Eye exam: PRESENT: conjunctiva pink. ABSENT: scleral icterus Ear exam: PRESENT: normal external ear exam Mouth exam: PRESENT: dry mucosa, tongue midline Respiratory exam: PRESENT: clear to auscultation geovanni, decreased breath sounds - diminished, other - shallow, irregular respirations with frequent pauses of 5-10 seconds. ABSENT: rales, rhonchi, wheezes Cardiovascular exam: PRESENT: other - irregular HR by auscultation. ABSENT: diastolic murmur, rubs, systolic murmur Pulses: PRESENT: +1 pedal pulses bilateral Vascular exam: PRESENT: pallor Gentrourinary exam: PRESENT: indwelling catheter - vandana hematuria w/ clots Neurological exam: PRESENT: other - withdraws from stimuli Skin exam: PRESENT: dry, intact, warm. ABSENT: cyanosis, rash Results Laboratory Results: 03/03/18 02:20 03/03/18 02:20 03/03/18 03/03/18 03/03/18 02:20 02:20 11:44 Creatine Kinase 147 CK-MB (CK-2) 2.83 Troponin I 0.037 0.023 Impressions: Cervical Spine CT 03/03/18 00:00 IMPRESSION: No acute findings. Head CT 03/03/18 00:00 IMPRESSION: No acute findings. Chest X-Ray 03/03/18 02:13 IMPRESSION: Satisfactory position of the endotracheal tube copyright 2010 [employer]- All Rights Reserved Assessment & Plan - Diagnosis (1) Altered mental status Qualifiers: Altered mental status type: somnolence Qualified Code(s): R40.0 - Somnolence Is this a current diagnosis for this admission?: Yes Plan: Secondary to end-stage dementia with Shy-Drager's. Head CT revealed changes associated with age, no acute findings, no acute CVA. Cervical CT was negative for acute findings. Chest x-ray was benign. EKG demonstrated sinus rhythm with an intraventricular conduction delay. Troponins are negative x2. Patient's family members have requested comfort care measures; patient was accepted to [facility] and had a bed available today. However, the patient's respirations have become increasing irregular with periods of frequent apnea (5- 10 seconds) and now with an irregular heart rate. The transfer to [facility] was cancelled as I have concerns that the patient is no longer stable for a 90 min ambulance transport. Comfort care order set in place; IV morphine, Ativan, SL atropine drops, GA Tylenol as needed for symptom management. Oxygen 2 L/min via nasal cannula for comfort only. (2) Apnea Is this a current diagnosis for this admission?: Yes Plan: Secondary to #1. Patient demonstrated increased frequency of respiratory pauses today. Patient was initially intubated by emergency department personnel and subsequently extubated when the patient's family arrived and confirmed his DNR/DNI status with desire to pursue hospice services. (3) Autonomic instability Is this a current diagnosis for this admission?: Yes Plan: Secondary to #1; plan as above. (4) Advanced dementia Is this a current diagnosis for this admission?: Yes (5) Hematuria Is this a current diagnosis for this admission?: Yes Plan: Secondary to traumatic ambriz placement in patient with BPH. Ambriz catheter in place for comfort. Flush/irrigate every 6 hours and as needed to prevent obstruction. (6) Urinary retention Is this a current diagnosis for this admission?: Yes Plan: Nursing noted that the patient had no urinary output despite a Ambriz catheter being placed. The Ambriz catheter was removed and vandana hematuria with blood clots was noted. Ambriz catheter was replaced; scant amount of urine output was noted. Despite all attempts to flush the catheter, the obstruction was not relieved. Surgery was consulted and, fortunately, was able to place and irrigate through a triple- lumen catheter with resultant 1 L output of hematuria. Will continue ambriz catheter flushes every 6 hours and as needed to prevent further obstruction. - Time Time Spent with patient: 35 or more minutes Medications reviewed and adjusted accordingly: Yes Anticipated discharge: Other - Expectant demise Within: within 48 hours
[2018-03-06] MEDS: MORPHINE SULFATE 10 MG/ML INJ IV PRN ×4 (01:40→15:54)
[2018-03-06] MEDS: ATROPINE SULFATE 1% OPH SOLN 5 ML BOTTLE SL PRN ×2 (01:41→13:04)
[2018-03-06] MEDS: LORAZEPAM INJ 2 MG/1 ML VIAL IV PRN ×3 (05:05→15:55)
--- NOTE | 2018-03-06 10:37 | PDOC PROGRESS REPORT ---
Subjective Progress Note for:: 03/06/18 Subjective:: The patient's is at the bedside. She admits that this is a difficult situation but she reports that she is not in need of anything at this time. Reason For Visit: DEMENTIA,ACUTE RESP FAILURE,AUTONOMIC DYSFUNCTION Physical Exam Vital Signs: Temp Pulse Resp BP Pulse Ox 99.9 F 47 L 11 L 121/55 L 98 03/03/18 14:30 03/03/18 01:54 03/03/18 16:01 03/03/18 16:01 03/06/18 04:43 Intake & Output 03/05/18 03/06/18 03/07/18 06:59 06:59 06:59 Intake Total 0 Output Total 1800 1400 Balance -1800 -1400 General appearance: PRESENT: mild distress, other - Occasional spontaneous movements with his arms Head exam: PRESENT: normocephalic Eye exam: PRESENT: other - Unable Mouth exam: PRESENT: dry mucosa Respiratory exam: PRESENT: clear to auscultation geovanni - Anteriorly., decreased breath sounds, other - Irregular breathing with occasional apneic episodes. Very congested breath sounds occasionally. Cardiovascular exam: PRESENT: RRR, other - Difficult to auscultate heart sounds with congested breathing. GI/Abdominal exam: PRESENT: diminished bowel sounds, soft. ABSENT: distended, tenderness Rectal exam: PRESENT: deferred Neurological exam: PRESENT: other - Poorly responsive Results Laboratory Results: 03/03/18 02:20 03/03/18 02:20 03/03/18 03/03/18 03/03/18 02:20 02:20 11:44 Creatine Kinase 147 CK-MB (CK-2) 2.83 Troponin I 0.037 0.023 Impressions: Cervical Spine CT 03/03/18 00:00 IMPRESSION: No acute findings. Head CT 03/03/18 00:00 IMPRESSION: No acute findings. Chest X-Ray 03/03/18 02:13 IMPRESSION: Satisfactory position of the endotracheal tube copyright 2011 [employer]- All Rights Reserved Assessment & Plan - Diagnosis (1) Altered mental status Qualifiers: Altered mental status type: somnolence Qualified Code(s): R40.0 - Somnolence Is this a current diagnosis for this admission?: Yes Plan: Most likely secondary to advanced dementia as workup on admission did not show any acute new pathology. (2) Advanced dementia Is this a current diagnosis for this admission?: Yes Plan: Because of the patient's current condition and poor prognosis the family has decided on comfort measures only. Transfer to [facility] was considered but due to new apneic episodes yesterday the transfer was placed on hold. Will review again today. The patient is maintaining reasonable blood pressure. He has had episodes of bradycardia (3) Apnea Is this a current diagnosis for this admission?: Yes Plan: As noted above increased frequency of apneic episodes. We will continue to monitor. (4) Autonomic instability Is this a current diagnosis for this admission?: Yes Plan: At this point patient is comfort care only. No intervention for this condition at this time. (5) Hematuria Qualifiers: Hematuria type: unspecified type Qualified Code(s): R31.9 - Hematuria, uns pecified Is this a current diagnosis for this admission?: Yes Plan: The patient was exhibiting urinary retention. With his current comfort status a catheter was placed. Flush catheter for any signs of hematuria. - Time Time Spent with patient: Less than 15 minutes Medications reviewed and adjusted accordingly: Yes Anticipated discharge: Hospice
[2018-03-06] MEDS: CYCLOSPORINE 0.05% OPH EMULSIO 0.4 ML DROPERETTE OU SCH (11:50)
[2018-03-07] MEDS: CYCLOSPORINE 0.05% OPH EMULSIO 0.4 ML DROPERETTE OU SCH ×3 (02:25→21:37)
[2018-03-07] MEDS: MORPHINE SULFATE 10 MG/ML INJ IV PRN ×5 (02:26→21:40)
[2018-03-07] MEDS: LORAZEPAM INJ 2 MG/1 ML VIAL IV PRN ×2 (04:22→11:22)
[2018-03-07] MEDS: ATROPINE SULFATE 1% OPH SOLN 5 ML BOTTLE SL PRN ×3 (04:25→17:02)
[2018-03-07] MEDS ORDERED: MORPHINE SULFATE 10 MG/ML INJ IV PRN (13:37)
--- NOTE | 2018-03-07 18:00 | PDOC PROGRESS REPORT ---
Subjective Progress Note for:: 03/07/18 Subjective:: Multiple family members present. Respiratory pattern is now Willie-Delgado. He appears to be struggling for air. Reason For Visit: DEMENTIA,ACUTE RESP FAILURE,AUTONOMIC DYSFUNCTION Physical Exam Vital Signs: Temp Pulse Resp BP Pulse Ox 99.9 F 47 L 11 L 121/55 L 98 03/03/18 14:30 03/03/18 01:54 03/03/18 16:01 03/03/18 16:01 03/06/18 04:43 Intake & Output 03/06/18 03/07/18 03/08/18 06:59 06:59 06:59 Intake Total 0 Output Total 1400 900 Balance -1400 -900 General appearance: PRESENT: other - Moderate distress with tachypnea Mouth exam: PRESENT: dry mucosa Respiratory exam: PRESENT: clear to auscultation geovanni - Clear to auscultation bilaterally anteriorly, decreased breath sounds - Due to shortened inspiratory phase, tachypnea, other - Very limited inspiratory phase Cardiovascular exam: PRESENT: RRR, +S1, +S2 GI/Abdominal exam: PRESENT: diminished bowel sounds, soft. ABSENT: tenderness Neurological exam: PRESENT: other - Unresponsive Psychiatric exam: PRESENT: other - Unresponsive Focused psych exam: PRESENT: other - Unresponsive Results Laboratory Results: 03/03/18 02:20 03/03/18 02:20 03/03/18 03/03/18 03/03/18 02:20 02:20 11:44 Creatine Kinase 147 CK-MB (CK-2) 2.83 Troponin I 0.037 0.023 Impressions: Cervical Spine CT 03/03/18 00:00 IMPRESSION: No acute findings. Head CT 03/03/18 00:00 IMPRESSION: No acute findings. Chest X-Ray 03/03/18 02:13 IMPRESSION: Satisfactory position of the endotracheal tube copyright 2011 [employer]- All Rights Reserved Assessment & Plan - Diagnosis (1) Need for comfort care Is this a current diagnosis for this admission?: Yes Plan: The patient is currently comfort care only. He was having intermittent apneic episodes yesterday. Today he is quite tachypneic. I will expand the morphine d osing to try and relieve his air hunger. Multiple family members were present. The patient's agreed that she does not want him to be uncomfortable. (2) Altered mental status Qualifiers: Altered mental status type: somnolence Qualified Code(s): R40.0 - Somnolence Is this a current diagnosis for this admission?: Yes Plan: The patient is now comfort care only. No acute intervention. (3) Advanced dementia Is this a current diagnosis for this admission?: Yes Plan: The patient is now comfort measures only. No further intervention or diagnostics. (4) Apnea Is this a current diagnosis for this admission?: Yes Plan: He now has Willie-Delgado breathing. I have increased the morphine to try and eliminate air hunger. (5) Autonomic instability Is this a current diagnosis for this admission?: Yes Plan: Comfort care only. No further intervention. (6) Hematuria Qualifiers: Hematuria type: unspecified type Qualified Code(s): R31.9 - Hematuria, unspecified Is this a current diagnosis for this admission?: Yes Plan: No treatment at this time as he is comfort care only. - Time Time Spent with patient: Less than 15 minutes Medications reviewed and adjusted accordingly: Yes Anticipated discharge: Hospice
[2018-03-08] MEDS: LORAZEPAM INJ 2 MG/1 ML VIAL IV PRN (00:05)
--- NOTE | 2018-03-08 07:47 | Death Summary ---
Summary Date : 03/08/18 Time of :: 04:21 Autopsy: No Resuscitation Status: Comfort Measures Only - Final Diagnosis (1) Need for comfort care Is this a current diagnosis for this admission?: Yes (2) Altered mental status Is this a current diagnosis for this admission?: Yes (3) Advanced dementia Is this a current diagnosis for this admission?: Yes (4) Apnea Is this a current diagnosis for this admission?: Yes (5) Autonomic instability Is this a current diagnosis for this admission?: Yes (6) Hematuria Is this a current diagnosis for this admission?: Yes Hospital Course:: Mr. Granados presented to the hospital with end-stage dementia as well as autonomic dysfunction including hypotension and apneic episodes. The family had agreed to hospice care. On the day that a bed was available the patient was exhibiting apneic episodes. It was felt to be inappropriate to transfer as the patient might have in the ambulance. Over the next day the patient's breathing got worse. More aggressive comfort measures were instituted. The patient on March 08 that 4:[address] Lester completed the certificate.
== END 2018-03-08 06:40 | DRG 208 ==
LOC: ER 01:53 → EH 04:36 → 4W 17:15
PROVIDERS: ADMIT Internal Medicine; ATTEND Internal Medicine
PROC: 0BH17EZ Insertion of Endotracheal Airway into Trachea, Via Natural or Artificial Opening (ICD-10-PCS; principal; 2018-03-03)
PROC: 5A1935Z Respiratory Ventilation, Less than 24 Consecutive Hours (ICD-10-PCS; 2018-03-03)
DX: R09.02 Hypoxemia (principal); R06.81 Apnea, not elsewhere classified; R06.89 Other abnormalities of breathing; Z66 Do not resuscitate; Z51.5 Encounter for palliative care; R31.9 Hematuria, unspecified; I10 Essential (primary) hypertension; E78.5 Hyperlipidemia, unspecified; N36.8 Other specified disorders of urethra; G90.8 Other disorders of autonomic nervous system; R40.0 Somnolence; I25.2 Old myocardial infarction; K21.9 Gastro-esophageal reflux disease without esophagitis; F03.90 Unspecified dementia, unspecified severity, without behavioral disturbance, psychotic disturbance, mood disturbance, and anxiety; Z95.1 Presence of aortocoronary bypass graft; Z95.5 Presence of coronary angioplasty implant and graft; Z87.891 Personal history of nicotine dependence; Z88.8 Allergy status to other drugs, medicaments and biological substances; Z91.81 History of falling
CPT/HCPCS: 36415; 70450; 71045; 72125; 80053; 82550; 82553; 83605; 84484; 85025; 85610; 85730; 93005; 93010; 94660; 96374; 99291; 99292; C1758; J0330; J2060; J2270; J2704; J3490